=== PATIENT | female | born 1985 | race Caucasian/White ===

== ENCOUNTER 2017-06-05 09:37 | Inpatient (IN) | END 2017-06-09 17:16 | disposition home or self-care (01) | DRG 765 | DX: O42.012 Preterm premature rupture of membranes, onset of labor within 24 hours of rupture, second trimester (principal); O45.92 Premature separation of placenta, unspecified, second trimester; O69.0XX0 Labor and delivery complicated by prolapse of cord, not applicable or unspecified; O09.812 Supervision of pregnancy resulting from assisted reproductive technology, second trimester; Z3A.26 26 weeks gestation of pregnancy; Z37.0 Single live birth ==

== ENCOUNTER 2017-06-18 10:16 | Emergency (ER) | payer OTHER ==
[~2017-06-18] VITALS: Ht 162.6 cm; Wt 79.0 kg
[~2017-06-18 10:16] MED LIST: FERR325T5 PO; PREN-93 PO
[2017-06-18 10:18] VITALS: Ht 162.6 cm; Wt 79.0 kg
--- NOTE | 2017-06-18 10:48 | ERD ---
ER Documentation Chief Complaint Date/Time DATE: 06/18/17 TIME: 10:40 Chief Complaint pt bib family with c/o fever since , C-Sec on 06/06/17 HPI 31-year-old female who presents emergency department for fever since Wednesday. Had a last 06/06/2017 here in the emergency department. Complains of vaginal spotting. Took Tylenol last night. Denies headache, loss of consciousness, dizziness, blurry vision, changes in vision, photophobia, facial pain, ear pain, throat pain, difficulty swallowing, neck pain, shoulder pain, chest pain, cough, hemoptysis, abdominal pain, back pain, loss of appetite, nausea, vomiting, hematochezia, diarrhea, constipation, urinary symptoms, , the possibility of being , bladder and bowel incontinences, extremity weakness, extremity tenderness, numbness or tingling sensation, difficulty walking, recent travel, recent exposure to illness, recent antibiotic use in the last 3 months. Allergy: No known drug allergies. PMH: Denies. A0. LMP: Medications: Tylenol. Surgery: 1. Primary Social History: Not working at this time. Denies smoking, use of alcohol, use of illegal drugs. ROS All systems reviewed and are negative except as per history of present illness. Medications Home Meds Active Scripts Acetaminophen* (Tylophen*) 500 Mg Capsule, 1 CAP PO Q6H Y for PAIN AND OR ELEVATED TEMP, #20 CAP Prov:PASILABAN,KLAR F 06/18/17 Cephalexin* (Keflex*) 500 Mg Capsule, 500 MG PO QID for 5 Days, CAP Prov:PASILABAN,KLAR F 06/18/17 Reported Medications Ferrous Sulfate (Ferrous Sulfate) 325 Mg Tablet.dr, 325 MG PO 06/05/17 Vit No.124/Iron/FA ( Vitamin Tablet) 1 Each Tablet, 1 EACH PO, TAB 06/05/17 Allergies Allergies: Coded Allergies: No Known Allergy (Unverified , 06/05/17) Physical Exam Vitals Vital Signs Date Time Temp Pulse Resp B/P Pulse Ox O2 Delivery O2 Flow Rate FiO2 06/18/17 13:32 98.2 89 18 99/65 98 06/18/17 10:18 100.6 102 16 102/66 98 Physical Exam Const: [] Head: Atraumatic Eyes: Normal Conjunctiva ENT: Normal External Ears, Nose and Mouth. Neck: Full range of motion..~ No meningismus. Resp: Clear to auscultation bilaterally Cardio: Regular rate and rhythm, no murmurs Abd: Soft, non tender, non distended. Normal bowel sounds. site is healed. No dehiscence. No tenderness to palpation. No induration noted. Skin: No petechiae or rashes Back: No midline or flank tenderness Ext: No cyanosis, or edema Neur: Awake and alert. Psych: Normal Mood and Affect Result Diagram: 06/18/17 1125 06/18/17 1125 Results 24 hrs Laboratory Tests Test 06/18/17 11:25 06/18/17 12:02 White Blood Count 13.610^3/ul Red Blood Count 3.5010^6/ul Hemoglobin 10.9g/dl Hematocrit 32.1% Mean Corpuscular Volume 91.7fl Mean Corpuscular Hemoglobin 31.1pg Mean Corpuscular Hemoglobin Concent 34.0g/dl Red Cell Distribution Width 12.7% Platelet Count 49881^3/UL Mean Platelet Volume 10.3fl Neutrophils % 83.2% Lymphocytes % 10.2% Monocytes % 5.5% Eosinophils % 0.4% Basophils % 0.1% Nucleated Red Blood Cells % 0.0/100WBC Neutrophils # (Manual) 11.310^3/ul Lymphocytes # 1.410^3/ul Monocytes # 0.810^3/ul Eosinophils # 0.110^3/ul Basophils # 0.010^3/ul Nucleated Red Blood Cells # 0.010^3/ul Prothrombin Time 13.3Sec Prothrombin Time Ratio 1.0 INR International Normalized Ratio 1.01 Activated Partial Thromboplast Time 34.3Sec Urine Color YELLOW Urine Clarity SLIGHTLY CLOUDY Urine pH 6.0 Urine Specific [place] 1.024 Urine Ketones NEGATIVEmg/dL Urine Nitrite NEGATIVEmg/dL Urine Bilirubin NEGATIVEmg/dL Urine Urobilinogen NEGATIVEmg/dL Urine Leukocyte Esterase 3+Pk/ul Urine Microscopic RBC 14/HPF Urine Microscopic WBC 45/HPF Urine Squamous Epithelial Cells FEW/HPF Urine Mucus FEW/HPF Urine Hemoglobin 2+mg/dL Urine Glucose NEGATIVEmg/dL Urine Total Protein 1+mg/dl Sodium Level 141mmol/L Potassium Level 4.0mmol/L Chloride Level 100mmol/L Carbon Dioxide Level 26mmol/L Anion Gap 19 Blood Urea Nitrogen 12mg/dl Creatinine 0.54mg/dl Glucose Level 97mg/dl Calcium Level 9.1mg/dl Total Bilirubin 0.3mg/dl Direct Bilirubin 0.00mg/dl Indirect Bilirubin 0.3mg/dl Aspartate Amino Transf (AST/SGOT) 46IU/L Alanine Aminotransferase (ALT/SGPT) 45IU/L Alkaline Phosphatase 187IU/L Total Protein 8.3g/dl Albumin 3.8g/dl Globulin 4.50g/dl Albumin/Globulin Ratio 0.84 Amylase Level 59U/L Lipase 83U/L Serum HCG, Qualitative NEGATIVE Lactic Acid Level 0.8mmol/L Current Medications Medications (Trade) Dose Ordered Sig/Alejandro Route PRN Reason Start Time Stop Time Status Last Admin Dose Admin Acetaminophen 650 mg 650 mg ONCE ONCE PO 06/18/17 11:00 06/18/17 11:01 DC 06/18/17 11:35 Sodium Chloride (NS) 1,000 ml @ 1,000 mls/hr Q1H ONCE IV 06/18/17 11:00 06/18/17 11:59 DC 06/18/17 11:35 IV Flush 10 ml 10 ml STK-MED ONCE .ROUTE 06/18/17 12:14 06/18/17 12:15 DC Sodium Chloride (NS) 100 ml @ ud STK-MED ONCE .ROUTE 06/18/17 12:14 06/18/17 12:15 DC Iohexol 150 ml 150 ml STK-MED ONCE .ROUTE 06/18/17 12:14 06/18/17 12:15 DC Sodium Chloride (NS) 1,000 ml @ 1,000 mls/hr Q1H ONCE IV 06/18/17 13:30 06/18/17 14:25 DC 06/18/17 13:31 Procedures/MDM Examination: Please see physical examination. Disease process, medical treatment was explained to the patient and family member. They verbalized understanding and agreed with the diagnostic tests, medical treatment, and follow-up care. CT of the abdomen and pelvis with IV contrast Impression: Complex fluid collections are seen in the bilateral adnexa, large and tubular appearing on the right, as described above, with adjacent inflammatory stranding. Findings may be compatible with hydrosalpinx, through pyosalpinx/tubo-ovarian abscess is not excluded. Uterus is prominent, compatible with recent state. No evidence of hematoma or active contrast extravasation is identified. There is no bowel obstruction or perforation. Blood works: Mild leukocytosis. POC urine : Negative. Urinalysis: UTI. Culture urine: Awaiting for results. Treatment: IV insertion. Normal saline 1 L IV bolus 2. Re-evaluation: Denies headache, dizziness, blurry vision, neck pain, shoulder pain, chest pain, back pain, abdominal pain, nausea, vomiting. No episode of emesis in the emergency department. Alert and oriented 4. Speaks full and clear sentences. Respirations even and unlabored. Lung sounds clear to auscultation. Active bowel sounds. There is no right upper/right lower/ epigastric/left upper/left lower abdominal tenderness and light and deep palpation. Negative on Rovsings sign. Negative Wiley sign. Able to jump 5 times without developing right-sided abdominal pain. No peritoneal signs. Ambulatory with steady gait. No neurovascular deficits. No neurological deficits. Consultation: None. Differential diagnosis: Sepsis versus abscess versus pyelonephritis versus nephrolithiasis versus urinary tract infection Medical decision makin-year-old female who presents emergency department for fever since Wednesday. Had a last 06/06/2017 here in the emergency department. Complains of vaginal spotting. Took Tylenol last night. Patient's complaint, patient's history about her complaint, my physical findings, diagnostic test results, my reevaluation are consistent with final diagnosis of UTI, mild leukocytosis. Medications prescribed are the following: Keflex. Tylenol. Patient and family member are made aware of the side effects and adverse reactions of the medications prescribed. Instructed on when to seek emergent and medical attention in case allergic/anaphylactic reactions or severe side effects and or adverse reactions to medications. Patient and family member verbalized understanding. Patient instructed Instructed to follow-up with his PCP in 24-48 hours. Follow-up with surgeon the next 24-48 hours. Instructed to Call 911 for chest pain, shortness of breath. Advised to come back here in ED as soon as possible for severity of symptoms which includes but not limited to: any new symptoms; shortness of breath/difficulty of breathing; cardiovascular changes; severe gastrointestinal symptoms; signs and symptoms of bleeding and or infection; signs of compartment syndrome/neurovascular changes; neurological changes/deficits. Patient and family member verbalized understanding. Upon discharge, patient is alert and oriented x 4, speaks full and clear sentences, denies pain, has no neurological deficits, has no neurovascular deficits, difficulty of breathing. Breathing even and unlabored. Lung sounds are clear to auscultation. Not in distress. Appears comfortable. Ambulatory with steady gait. Appears satisfied with care provided here in ED. Departure Diagnosis: Primary Impression: Fever Additional Impression: UTI (urinary tract infection) Condition: Stable Additional Instructions: Instructed to follow-up with his PCP in 24-48 hours. Follow-up with surgeon the next 24-48 hours. Instructed to Call 911 for chest pain, shortness of breath. Advised to come back here in ED as soon as possible for severity of symptoms which includes but not limited to: any new symptoms; shortness of breath/difficulty of breathing; cardiovascular changes; severe gastrointestinal symptoms; signs and symptoms of bleeding and or infection; signs of compartment syndrome/neurovascular changes; neurological changes/deficits. Patient and family member verbalized understanding. VEE GUSTAFSON Jun 18, 2017 10:47
[2017-06-18] MEDS ORDERED: ACETAMINOPHEN 325 MG TAB PO ONE (11:00)
[2017-06-18] MEDS ORDERED: SOD CHLORIDE 0.9% 1,000 ML IV ONE ×2 (11:00→13:30)
[2017-06-18 11:41] LABS: BASOPHILS % 0.1 % (0.0-2.0); EOSINOPHILS # 0.1 10^3/ul (0.0-0.5); EOSINOPHILS % 0.4 % (0.0-7.0); HEMATOCRIT 32.1 % (37.0-47.0); HEMOGLOBIN 10.9 g/dl (12.0-16.0); LYMPHOCYTES # 1.4 10^3/ul (0.8-2.9); LYMPHOCYTES % 10.2 % (15.0-51.0); MEAN CORPUSCULAR HEMOGLOBIN 31.1 pg (29.0-33.0); MEAN CORPUSCULAR VOLUME 91.7 fl (82.0-101.0); MEAN PLATELET VOLUME 10.3 fl (7.4-10.4); MONOCYTE # 0.8 10^3/ul (0.3-0.9); MONOCYTES % 5.5 % (0.0-11.0); NEUTROPHILS % 83.2 % (39.0-77.0); PLATELET COUNT 253 10^3/UL (140-415); RED CELL DISTRIBUTION WIDTH 12.7 % (11.5-14.5); WHITE BLOOD COUNT 13.6 10^3/ul (4.8-10.8)
[2017-06-18 11:55] LABS: ALBUMIN 3.8 g/dl (3.3-4.9); ALBUMIN/GLOBULIN RATIO 0.84; BILIRUBIN,INDIRECT 0.3 mg/dl (0-1.1); BILIRUBIN,TOTAL 0.3 mg/dl (0.2-1.3); CALCIUM 9.1 mg/dl (8.4-10.2); CREATININE 0.54 mg/dl (0.44-1.00); TOTAL PROTEIN 8.3 g/dl (6.1-8.1)
[2017-06-18 11:56] LABS: AMYLASE 59 U/L (11-123); INR 1.01; PROTIME 13.3 Sec (12.2-14.2)
[2017-06-18 11:57] LABS: PARTIAL THROMBOPLASTIN TIME 34.3 Sec (25.0-35.0)
[2017-06-18] MEDS ORDERED: IOHEXOL 300MG/ML 150 ML BTL ONE (12:14)
[2017-06-18] MEDS ORDERED: SOD CHLORIDE 0.9% 100 ML ONE (12:14)
[2017-06-18 12:15] LABS: ADD UMIC YES; UR ASCORBIC ACID NEGATIVE (NEGATIVE); UR BILIRUBIN (Dip) NEGATIVE (NEGATIVE); UR BLOOD (Dip) 2+ mg/dL (NEGATIVE); UR CLARITY SLIGHTLY CLOUDY (CLEAR); UR COLOR YELLOW (YELLOW); UR GLUCOSE (Dip) NEGATIVE (NEGATIVE); UR KETONES (Dip) NEGATIVE (NEGATIVE); UR LEUKOCYTE ESTERASE (Dip) 3+ Leu/ul (NEGATIVE); UR MUCUS FEW /HPF (NONE SEEN); UR NITRITE (Dip) NEGATIVE (NEGATIVE); UR RBC 14 /HPF (0-5); UR SPECIFIC GRAVITY (Dip) 1.024 (1.003-1.030); UR SQUAMOUS EPITHELIAL CELL FEW /HPF (FEW); UR TOTAL PROTEIN (Dip) 1+ mg/dl (NEGATIVE); UR UROBILINOGEN (Dip) NEGATIVE (NEGATIVE)
--- NOTE | 2017-06-18 12:44 | RADRPT ---
PROCEDURE: CT Abdomen and Pelvis with contrast. CLINICAL INDICATION: Pain at section site TECHNIQUE: CT of the abdomen and pelvis was performed on a multi-detector scanner following the un complicated IV administration of 100 cc of Omnipaque 300. Coronal and sagittal images were reformat bruce from the axial data set. One or more of the following dose reduction techniques were used: auto mated exposure control, adjustment of the mA and/or kV according to patient size, use of iterative reconstruction technique. CTDI = 15.68 mGy. DLP = 969.08 mGy-cm. COMPARISON: Ultrasound, 06/05/2017 FINDINGS: CT abdomen: The lung bases are clear. The heart size is normal, without pericardial effusion. Liver, gallbladd er, biliary tree, pancreas, spleen, adrenal glands and kidneys are unremarkable. There is no urolit hiasis or obstructive uropathy. The stomach is grossly unremarkable. There is no abdominal aortic aneurysm or dissection. There is no retroperitoneal lymphadenopathy. The liang hepatis region is clear. CT pelvis: No bowel obstruction or free intraperitoneal air is identified. There is no diverticulosis, diverti culitis, colitis or appendicitis. Urinary bladder is grossly unremarkable. Uterus is prominent, co mpatible with recent state. Thick-walled, complex tubular appearing structure is identif ied in the right adnexa, measuring approximately 6.2 x 4.3 x 4.5 cm (3-141), with mild adjacent inflammatory stranding. Smaller 3.8 x 2.8 x 1.9 cm questionably locu lated collection is seen in the left adnexa as well (3-140). No evidence of abnormality is seen at the incision site within anterior pelvic subcutaneous fat. The surrounding osseous structures are unremarkable. No osteolytic or osteoblastic lesion is detect ed. IMPRESSION: 1. Complex fluid collections are seen in the bilateral adnexa, larger and tubular-appearing on the right, as described above, with adjacent inflammatory stranding. Findings may be compatible with hy drosalpinx, though pyosalpinx/tubo-ovarian abscess is not excluded. 2. Uterus is prominent, compatible with recent state. 3. No evidence of hematoma or active contrast extravasation is identified. 4. There is no bowel obstruction or perforation. RPTAT: AA .Bethel Woody MD, MD Date Time Electronically viewed and signed by .Bethel Woody MD, MD on 06/18/2017 12:44 .R/
[2017-06-18] MEDS ORDERED: ACET500C5 PO (13:15)
[2017-06-18] MEDS ORDERED: CEPH-443 PO (13:15)
[2017-06-18 13:32] VITALS: BP 99/65; PULSE 89; RESP 18; TEMP 98.2
== END 2017-06-18 14:25 | disposition home or self-care (01) ==
LOC: FTE 10:16
DX: O86.4 Pyrexia of unknown origin following delivery (principal); O86.20 Urinary tract infection following delivery, unspecified; B96.89 Other specified bacterial agents as the cause of diseases classified elsewhere
CPT/HCPCS: 36415; 74177; 80053; 81001; 82150; 83605; 83690; 84703; 85025; 85610; 85730; 87040; 87086; J7030; Q9967; Z7502; Z7610

== ENCOUNTER 2017-06-21 11:20 | Inpatient (IN) | payer OTHER ==
[~2017-06-21] VITALS: Ht 162.6 cm; Wt 78.6 kg
[~2017-06-21 11:20] MED LIST changes: +ACET500C5 PO; +CEPH-443 PO
[2017-06-21] MEDS ORDERED: PIPER-TAZO 3.375 GM IV (PMX) 100 ML IVPB STA (13:50)
[2017-06-21] MEDS ORDERED: SOD CHLORIDE 0.9% IV ONE (14:00)
--- NOTE | 2017-06-21 14:11 | ERA ---
ER Documentation Chief Complaint Date/Time DATE: 06/21/17 TIME: 14:09 Chief Complaint FEVER HPI 31-year-old female presenting with a chief complaints of fever. Patient has pain at incision site of performed on June 06. Patient denies any medical conditions. Patient had ovaries patient's was from IVF. Patient had tubal ligation after . CT was taken 4 days ago. Keflex 500 mg p.o. 4 times daily was prescribed and has been taken as directed. Acetaminophen for fever without relief. Patient has no other complaints and describes no other associated manifestations. Nursing notes have been reviewed and are consistent with history given. ROS All systems reviewed and are negative except as per history of present illness. Medications Home Meds Active Scripts Acetaminophen* (Tylophen*) 500 Mg Capsule, 1 CAP PO Q6H Y for PAIN AND OR ELEVATED TEMP, #20 CAP Prov:BRAYANILABANKYARAAR F 06/18/17 Cephalexin* (Keflex*) 500 Mg Capsule, 500 MG PO QID for 5 Days, CAP Prov:BRAYANILAKYARA LAUGHLINAR F 06/18/17 Reported Medications Ferrous Sulfate (Ferrous Sulfate) 325 Mg Tablet.dr, 325 MG PO 06/05/17 Vit No.124/Iron/FA ( Vitamin Tablet) 1 Each Tablet, 1 EACH PO, TAB 06/05/17 Allergies Allergies: Coded Allergies: No Known Allergy (Unverified , 06/05/17) PMhx/Soc History of Surgery: Yes ( 2weeks ago) Hx Alcohol Use: No Hx Substance Use: No Hx Tobacco Use: No Physical Exam Vitals Vital Signs Date Time Temp Pulse Resp B/P Pulse Ox O2 Delivery O2 Flow Rate FiO2 06/21/17 17:00 100.8 107 20 94/74 98 Room Air 06/21/17 16:03 101.5 105 20 114/78 99 Room Air 06/21/17 15:30 98.3 102 20 94/68 100 Room Air 06/21/17 14:27 Nasal Cannula 2 06/21/17 11:25 102.4 120 20 105/68 98 Physical Exam Const: Healthy-appearing. Well-nourished. Well-developed. No acute distress. Skin: Well-appearing incision site of . Appropriately healing. No discharge or foul smell noted. Mild induration and pain on the right aspect of incision. Induration less than 1 cm. No petechiae or rashes. No ulcer, jaundice. Good turgor. Ext: No cyanosis or edema noted. Head: Normocephalic. As noted in skin exam. Eyes: Non-injected; No scleral erythema, or discharge. EOMI and ALEX bilaterally. Ears: Normal External Ears, EACs clear, TM normal bilaterally without erythema. Nose: Normal nose without discharge, septal deviation, or sinus tenderness. Oral: No oral edema visualized. Mucous membranes moist and pink. Neck: No cervical lymphadenopathy, or masses. Trachea midline. Supple ~ No meningismus. Pulm: Good air movement in upper and lower respiratory tracts. No dyspnea, stridor, tripoding or drooling. Clear to auscultation bilaterally. Cardio: Regular rate and rhythm. No JVD grossly observed. Radial and posterior tibial pulses 2+ bilaterally. No cyanosis. Capillary refill less than 2 seconds. Abd: Soft, non tender, non distended. No guarding. Normal bowel sounds. MS: Normal motor strength, normal tone with gross examination. Back: No midline or flank tenderness. Neur: Neurovascularly intact bilaterally. Awake, alert and oriented x3. Result Diagram: 06/21/17 1410 06/21/17 1410 Results 24 hrs Laboratory Tests Test 06/21/17 14:10 06/21/17 15:50 06/21/17 16:28 White Blood Count 10.910^3/ul Red Blood Count 3.4810^6/ul Hemoglobin 10.7g/dl Hematocrit 31.6% Mean Corpuscular Volume 90.8fl Mean Corpuscular Hemoglobin 30.7pg Mean Corpuscular Hemoglobin Concent 33.9g/dl Red Cell Distribution Width 13.2% Platelet Count 86929^3/UL Mean Platelet Volume 10.4fl Neutrophils % 84.0% Lymphocytes % 8.8% Monocytes % 6.3% Eosinophils % 0.1% Basophils % 0.3% Nucleated Red Blood Cells % 0.0/100WBC Neutrophils # (Manual) 9.110^3/ul Lymphocytes # 1.010^3/ul Monocytes # 0.710^3/ul Eosinophils # 0.010^3/ul Basophils # 0.010^3/ul Nucleated Red Blood Cells # 0.010^3/ul Prothrombin Time 13.2Sec Prothrombin Time Ratio 1.0 INR International Normalized Ratio 1.00 Activated Partial Thromboplast Time 35.4Sec Sodium Level 138mmol/L Potassium Level 3.7mmol/L Chloride Level 98mmol/L Carbon Dioxide Level 24mmol/L Anion Gap 20 Blood Urea Nitrogen 9mg/dl Creatinine 0.58mg/dl Glucose Level 129mg/dl Lactic Acid Level 1.3mmol/L 1.4mmol/L Calcium Level 9.2mg/dl Total Bilirubin 0.2mg/dl Direct Bilirubin 0.00mg/dl Indirect Bilirubin 0.2mg/dl Aspartate Amino Transf (AST/SGOT) 42IU/L Alanine Aminotransferase (ALT/SGPT) 62IU/L Alkaline Phosphatase 298IU/L Troponin I < 0.012ng/ml Total Protein 8.2g/dl Albumin 3.7g/dl Globulin 4.50g/dl Albumin/Globulin Ratio 0.82 Urine Color COLORLESS Urine Clarity CLEAR Urine pH 6.0 Urine Specific [place] 1.003 Urine Ketones NEGATIVEmg/dL Urine Nitrite NEGATIVEmg/dL Urine Bilirubin NEGATIVEmg/dL Urine Urobilinogen NEGATIVEmg/dL Urine Leukocyte Esterase 1+Pk/ul Urine Microscopic RBC 1/HPF Urine Microscopic WBC 0/HPF Urine Bacteria FEW/HPF Urine Hemoglobin 2+mg/dL Urine Glucose NEGATIVEmg/dL Urine Total Protein NEGATIVEmg/dl Current Medications Medications (Trade) Dose Ordered Sig/Alejandro Route PRN Reason Start Time Stop Time Status Last Admin Dose Admin Piperacillin Sod/ Tazobactam Sod 100 ml @ 200 mls/hr ONCE STAT IVPB 06/21/17 13:50 06/21/17 14:19 DC 06/21/17 14:14 Sodium Chloride (NS) 2,360 ml @ 2,360 mls/hr BOLUS X1 ONCE IV 06/21/17 14:00 06/21/17 14:59 DC 06/21/17 14:14 Acetaminophen (Tylenol Tab) 650 mg ONCE ONCE PO 06/21/17 16:30 06/21/17 16:31 DC 06/21/17 16:30 SHANNA LAWRENCE PA-C Jun 21, 2017 14:11
[2017-06-21 14:25] LABS: BASOPHILS % 0.3 % (0.0-2.0); EOSINOPHILS % 0.1 % (0.0-7.0); HEMATOCRIT 31.6 % (37.0-47.0); HEMOGLOBIN 10.7 g/dl (12.0-16.0); LYMPHOCYTES % 8.8 % (15.0-51.0); MEAN CORPUSCULAR HEMOGLOBIN 30.7 pg (29.0-33.0); MEAN CORPUSCULAR HGB CONC 33.9 g/dl (32.0-37.0); MEAN CORPUSCULAR VOLUME 90.8 fl (82.0-101.0); MEAN PLATELET VOLUME 10.4 fl (7.4-10.4); MONOCYTE # 0.7 10^3/ul (0.3-0.9); MONOCYTES % 6.3 % (0.0-11.0); PLATELET COUNT 291 10^3/UL (140-415); RED BLOOD COUNT 3.48 10^6/ul (4.20-5.40); RED CELL DISTRIBUTION WIDTH 13.2 % (11.5-14.5); WHITE BLOOD COUNT 10.9 10^3/ul (4.8-10.8)
--- NOTE | 2017-06-21 14:28 | RADRPT ---
PROCEDURE: XR Chest. CLINICAL INDICATION: chest pain TECHNIQUE: Single frontal view of the chest was obtained COMPARISON: None FINDINGS: The heart and mediastinum are within normal limits. The lungs are clear. There is no pleural effusion or pneumothorax. RPTAT: AA IMPRESSION: No acute disease. .Raji Fowler MD, Date Time Electronically viewed and signed by .Raji Fowler MD, on 06/21/2017 14:28 .S/
[2017-06-21 14:41] LABS: PROTIME 13.2 Sec (12.2-14.2)
[2017-06-21 14:42] LABS: PARTIAL THROMBOPLASTIN TIME 35.4 Sec (25.0-35.0)
[2017-06-21 14:45] LABS: ALANINE AMINOTRANSFERASE 62 IU/L (13-69); ALBUMIN 3.7 g/dl (3.3-4.9); ALBUMIN/GLOBULIN RATIO 0.82; ALKALINE PHOSPHATASE 298 IU/L (42-121); ANION GAP 20 (8-16); ASPARTATE AMINO TRANSFERASE 42 IU/L (15-46); BILIRUBIN,INDIRECT 0.2 mg/dl (0-1.1); BILIRUBIN,TOTAL 0.2 mg/dl (0.2-1.3); BLOOD UREA NITROGEN 9 mg/dl (7-20); CALCIUM 9.2 mg/dl (8.4-10.2); CARBON DIOXIDE 24 mmol/L (21-31); CHLORIDE 98 mmol/L (97-110); CREATININE 0.58 mg/dl (0.44-1.00); GLUCOSE 129 mg/dl (70-220); POTASSIUM 3.7 mmol/L (3.5-5.1); SODIUM 138 mmol/L (135-144); TOTAL PROTEIN 8.2 g/dl (6.1-8.1)
[2017-06-21 14:59] LABS: TROPONIN-I < 0.012 ng/ml (0.00-0.12)
--- NOTE | 2017-06-21 15:04 | RADRPT ---
PROCEDURE: US Pelvis CLINICAL INDICATION: Pain TECHNIQUE: Sonographic evaluation of the pelvis was performed utilizing both transabdominal and tr ansvaginal technique. Curved array transabdominal transducer technique as well as a high frequency endovaginal probe was utilized. Images were reviewed on the high-resolution PACS workstation. COMPARISON: CT, 06/18/2017 FINDINGS: The uterus is prominent, measuring 11.6 x 7.0 x 7.1 cm in dimension. The uterus is anteverted in no rmal position. The endometrium is not well delineated, though grossly appears thickened, measuring approximately 2.1 cm. Increased endometrial vascularity is also seen. Complex cystic, possibly tubular structure is again seen in the right adnexa, measuring 7.6 x 5.3 x 4.8 cm. The right ovary is not well visualized. There is no evidence of right adnexal torsion. The left ovary is not visualized. No pelvic free fluid is identified. IMPRESSION: 1. The endometrium grossly appears thickened and demonstrates increased vascularity - endometritis and/or retained products of conception are not excluded. 2. Complex cystic, possibly tubular structure is again noted in the right adnexa, similar to the pr ior CT - considerations include hemorrhagic ovarian cyst(s), hematosalpinx, and pyosalpinx. 3. The left ovary is not visualized. No left adnexal abnormality is seen. 4. No pelvic free fluid is identified. RPTAT: HH .Bethel Woody MD, Date Time Electronically viewed and signed by .Bethel Woody MD, MD on 06/21/2017 15:04 .R/
[2017-06-21] MEDS ORDERED: ACETAMINOPHEN 325 MG TAB PO ONE (16:30)
[2017-06-21 16:59] LABS: ADD UMIC YES; UR ASCORBIC ACID NEGATIVE (NEGATIVE); UR BACTERIA FEW /HPF (NONE SEEN); UR BILIRUBIN (Dip) NEGATIVE (NEGATIVE); UR BLOOD (Dip) 2+ mg/dL (NEGATIVE); UR CLARITY CLEAR (CLEAR); UR COLOR COLORLESS (YELLOW); UR GLUCOSE (Dip) NEGATIVE (NEGATIVE); UR KETONES (Dip) NEGATIVE (NEGATIVE); UR LEUKOCYTE ESTERASE (Dip) 1+ Leu/ul (NEGATIVE); UR NITRITE (Dip) NEGATIVE (NEGATIVE); UR RBC 1 /HPF (0-5); UR SPECIFIC GRAVITY (Dip) 1.003 (1.003-1.030); UR TOTAL PROTEIN (Dip) NEGATIVE (NEGATIVE); UR UROBILINOGEN (Dip) NEGATIVE (NEGATIVE)
[2017-06-21] MEDS ORDERED: SOD CHLORIDE 0.9% 1,000 ML IV SCH (18:29)
[2017-06-21] MEDS ORDERED: ACETAMINOPHEN 325 MG TAB PO PRN (18:30)
[2017-06-21] MEDS ORDERED: ONDANSETRON 4 MG INJ IV PRN (18:30)
--- NOTE | 2017-06-21 18:33 | ERA ---
ER Documentation Chief Complaint Date/Time DATE: 06/21/17 TIME: 18:30 Chief Complaint FEVER HPI This a 31-year-old female who had a performed here. This was done on June 07, 2017. The patient's been doing well until she was seen here 4 days ago where she had a fever and some vaginal spotting. Patient was diagnosed with urinary tract infection and sent home. The patient had a CT scan but I do not know if it was reviewed because it shows a probable tubo-ovarian abscess with some fainting of this stranding of the fat. This is possibly a bilateral TOA as well. The patient was sent home on Keflex since continued to have fevers of 103 for the past 4 days. She does have some mild diffuse pelvic pain but is not significant. No nausea vomiting fever headache dysuria. She says she is having some slight vaginal spotting but does not smell. ROS All systems reviewed and are negative except as per history of present illness. Medications Home Meds Active Scripts Acetaminophen* (Tylophen*) 500 Mg Capsule, 1 CAP PO Q6H Y for PAIN AND OR ELEVATED TEMP, #20 CAP Prov:KYARA GUSTAFSONAR F 06/18/17 Cephalexin* (Keflex*) 500 Mg Capsule, 500 MG PO QID for 5 Days, CAP Prov:BRAYANILAKYARA LAUGHLINAR F 06/18/17 Reported Medications Ferrous Sulfate (Ferrous Sulfate) 325 Mg Tablet., 325 MG PO 06/05/17 Vit No.124/Iron/FA ( Vitamin Tablet) 1 Each Tablet, 1 EACH PO, TAB 06/05/17 Allergies Allergies: Coded Allergies: No Known Allergy (Unverified , 06/05/17) PMhx/Soc History of Surgery: Yes ( 2weeks ago) Hx Alcohol Use: No Hx Substance Use: No Hx Tobacco Use: No FmHx Family History: No coronary disease Physical Exam Vitals Vital Signs Date Time Temp Pulse Resp B/P Pulse Ox O2 Delivery O2 Flow Rate FiO2 06/21/17 18:00 99.8 96 20 101/68 98 Room Air 06/21/17 17:00 100.8 107 20 94/74 98 Room Air 06/21/17 16:03 101.5 105 20 114/78 99 Room Air 06/21/17 15:30 98.3 102 20 94/68 100 Room Air 06/21/17 14:27 Nasal Cannula 2 06/21/17 11:25 102.4 120 20 105/68 98 Physical Exam Const: [] Head: Atraumatic Eyes: Normal Conjunctiva ENT: Normal External Ears, Nose and Mouth. Neck: Full range of motion..~ No meningismus. Resp: Clear to auscultation bilaterally Cardio: Regular rate and rhythm, no murmurs Abd: Soft, non tender, non distended. Normal bowel sounds Skin: No petechiae or rashes Back: No midline or flank tenderness Ext: No cyanosis, or edema Neur: Awake and alert Psych: Normal Mood and Affect Const: Well-developed, well-nourished Head: Atraumatic, normocephalic Eyes: Normal Conjunctiva, PERRLA, EOMI, normal sclera, no nystagmus ENT: Normal External Ears, Nose and Mouth, moist mucus membranes. Neck: Full range of motion. No meningismus, no lymphadenopathy. Resp: Clear to auscultation bilaterally, no wheezing, rhonchi, rales Cardio: Regular rate and rhythm, no murmurs, S1 S2 present Abd: Soft, mild diffuse pelvic tenderness, non distended. Normal bowel sounds, no guarding or rebound, no pulsitile abdominal masses or bruits Skin: No petechiae or rashes, no ecchymosis , no maculopapular rash Back: No midline or flank tenderness Ext: No cyanosis, or edema, FROM x 4, normal inspection, neurovascularly intact x 4 Neur: Awake and alert, STR 5/5 x 4, sensation intact x 4, no focal findings, cerebellum intact Psych: Normal Mood and Affect Result Diagram: 06/21/17 1410 06/21/17 1410 Results 24 hrs Laboratory Tests Test 06/21/17 14:10 06/21/17 15:50 06/21/17 16:28 White Blood Count 10.910^3/ul Red Blood Count 3.4810^6/ul Hemoglobin 10.7g/dl Hematocrit 31.6% Mean Corpuscular Volume 90.8fl Mean Corpuscular Hemoglobin 30.7pg Mean Corpuscular Hemoglobin Concent 33.9g/dl Red Cell Distribution Width 13.2% Platelet Count 92270^3/UL Mean Platelet Volume 10.4fl Neutrophils % 84.0% Lymphocytes % 8.8% Monocytes % 6.3% Eosinophils % 0.1% Basophils % 0.3% Nucleated Red Blood Cells % 0.0/100WBC Neutrophils # (Manual) 9.110^3/ul Lymphocytes # 1.010^3/ul Monocytes # 0.710^3/ul Eosinophils # 0.010^3/ul Basophils # 0.010^3/ul Nucleated Red Blood Cells # 0.010^3/ul Prothrombin Time 13.2Sec Prothrombin Time Ratio 1.0 INR International Normalized Ratio 1.00 Activated Partial Thromboplast Time 35.4Sec Sodium Level 138mmol/L Potassium Level 3.7mmol/L Chloride Level 98mmol/L Carbon Dioxide Level 24mmol/L Anion Gap 20 Blood Urea Nitrogen 9mg/dl Creatinine 0.58mg/dl Glucose Level 129mg/dl Lactic Acid Level 1.3mmol/L 1.4mmol/L Calcium Level 9.2mg/dl Total Bilirubin 0.2mg/dl Direct Bilirubin 0.00mg/dl Indirect Bilirubin 0.2mg/dl Aspartate Amino Transf (AST/SGOT) 42IU/L Alanine Aminotransferase (ALT/SGPT) 62IU/L Alkaline Phosphatase 298IU/L Troponin I < 0.012ng/ml Total Protein 8.2g/dl Albumin 3.7g/dl Globulin 4.50g/dl Albumin/Globulin Ratio 0.82 Urine Color COLORLESS Urine Clarity CLEAR Urine pH 6.0 Urine Specific [place] 1.003 Urine Ketones NEGATIVEmg/dL Urine Nitrite NEGATIVEmg/dL Urine Bilirubin NEGATIVEmg/dL Urine Urobilinogen NEGATIVEmg/dL Urine Leukocyte Esterase 1+Pk/ul Urine Microscopic RBC 1/HPF Urine Microscopic WBC 0/HPF Urine Bacteria FEW/HPF Urine Hemoglobin 2+mg/dL Urine Glucose NEGATIVEmg/dL Urine Total Protein NEGATIVEmg/dl Current Medications Medications (Trade) Dose Ordered Sig/Alejandro Route PRN Reason Start Time Stop Time Status Last Admin Dose Admin Piperacillin Sod/ Tazobactam Sod 100 ml @ 200 mls/hr ONCE STAT IVPB 06/21/17 13:50 06/21/17 14:19 DC 06/21/17 14:14 Sodium Chloride (NS) 2,360 ml @ 2,360 mls/hr BOLUS X1 ONCE IV 06/21/17 14:00 06/21/17 14:59 DC 06/21/17 14:14 Acetaminophen (Tylenol Tab) 650 mg ONCE ONCE PO 06/21/17 16:30 06/21/17 16:31 DC 06/21/17 16:30 Procedures/[facility] PROCEDURE: US Pelvis CLINICAL INDICATION: Pain TECHNIQUE: Sonographic evaluation of the pelvis was performed utilizing both transabdominal and transvaginal technique. Curved array transabdominal transducer technique as well as a high frequency endovaginal probe was utilized. Images were reviewed on the high-resolution PACS workstation. COMPARISON: CT, 06/18/2017 FINDINGS: The uterus is prominent, measuring 11.6 x 7.0 x 7.1 cm in dimension. The uterus is anteverted in normal position. The endometrium is not well delineated, though grossly appears thickened, measuring approximately 2.1 cm. Increased endometrial vascularity is also seen. Complex cystic, possibly tubular structure is again seen in the right adnexa, measuring 7.6 x 5.3 x 4.8 cm. The right ovary is not well visualized. There is no evidence of right adnexal torsion. The left ovary is not visualized. No pelvic free fluid is identified. IMPRESSION: 1. The endometrium grossly appears thickened and demonstrates increased vascularity - endometritis and/or retained products of conception are not excluded. 2. Complex cystic, possibly tubular structure is again noted in the right adnexa, similar to the prior CT - considerations include hemorrhagic ovarian cyst(s), hematosalpinx, and pyosalpinx. 3. The left ovary is not visualized. No left adnexal abnormality is seen. 4. No pelvic free fluid is identified. RPTAT: HH .Bethel Woody MD, Date Time Electronically viewed and signed by .Bethel Woody MD, on 06/21/2017 15: 04 .R/ CC: SHANNA LAWRENCE PA-C PROCEDURE: XR Chest. CLINICAL INDICATION: chest pain TECHNIQUE: Single frontal view of the chest was obtained COMPARISON: None FINDINGS: The heart and mediastinum are within normal limits. The lungs are clear. There is no pleural effusion or pneumothorax. RPTAT: AA IMPRESSION: No acute disease. .Raji Fowler MD, MD Date Time Electronically viewed and signed by .Raji Fowler MD, on 06/21/2017 14: 28 .S/ CC: SHANNA LAWRENCE PA-C Told the patient's steam cleaning machine operator to perform the procedure and will admit to him for TOA. Will give Zosyn for antibiotic coverage. Departure Diagnosis: Primary Impression: Tubo-ovarian abscess Additional Impression: Fever Qualified Code: R50.9 - Fever, unspecified fever cause Condition: Stable ANNA SAMPSON DO Jun 21, 2017 18:33
[2017-06-21] MEDS ORDERED: PIPER-TAZO 3.375 GM IV (PMX) 100 ML IVPB ONE (19:00)
[2017-06-21] MEDS ORDERED: DOCU-159 PO (20:01)
[2017-06-21 21:37] VITALS: TEMP 99.2
[2017-06-21 22:00] VITALS: BP 120/61; RESP 16
[2017-06-21 22:10] VITALS: BP 120/61; PULSE 101; RESP 18
[2017-06-21 22:34] VITALS: Ht 162.6 cm; Wt 78.6 kg
--- NOTE | 2017-06-21 23:41 | QN ---
Documentation Comment h and p dictated plan continue iv antibiotics, medicine consult, discuss with radiologist for possible ct guided drainage if necessary at this time SHANNA RICO MD Jun 21, 2017 23:41
[2017-06-22] MEDS: LACTATED RINGER'S 1,000 ML IV SCH ×3 (00:03→17:30)
[2017-06-22] MEDS: PIPER-TAZO 3.375 GM IV (PMX) 100 ML IVPB SCH ×5 (00:03→23:27)
[2017-06-22 01:43] VITALS: BP 120/66; RESP 16
--- NOTE | 2017-06-22 03:51 | HP ---
DATE OF ADMISSION: 06/21/2017 HISTORY OF PRESENT ILLNESS: Ms. Tommy Lakhani is a 31-year-old, 1, para 1, status post primary on June 06, 2017, by Dr. Srinivasan Dean, who is the primary surgeon. Patient presented to the ER today complaining of fever since last Wednesday, approximately 4-5 days ago. An ultrasound was performed with an impression of a complex cystic, possibly tubular structure, in the right adnexa, measuring approximately 7.6 x 5.3 x 4.8 cm. Considerations include hemorrhagic ovarian cyst, hematosalpinx and hydrosalpinx. Patient, in the ER, had a T-max of 100.2. After the above evaluation, it was felt that admission is necessary for further workup. She also received IV antibiotics. Her vital signs are currently 98.3, pulse 101, respiration 18, blood pressure 120/61, pulse oximetry 98 in room air. PAST MEDICAL HISTORY: None. MEDICATIONS: 1. Iron. 2. vitamins. PAST SURGICAL HISTORY: Times 1 previous , June 06, 2017. SOCIAL HISTORY: Denies any smoking, drugs, or alcohol. FAMILY HISTORY: None. REVIEW OF SYSTEMS: All within normal except History of Present Illness. PHYSICAL EXAMINATION: HEENT: Within normal. LUNGS: CTA bilateral. CVS: S1, S2. Regular rhythm. BREAST EXAM: Positive bilateral breast engorgement. Please note, jelly filter tender in the room. ABDOMEN: Dry, and intact. Negative distention. Nontender. No CVA tenderness. EXTREMITIES: Negative edema. No calf tenderness. VAGINAL: Exam deferred. DATA: Blood culture performed June 18, 2017. Blood culture preliminary no growth after 3 days. Her current white blood cell is 10.9, hemoglobin 10.7, hematocrit 31.6, platelets 291. ASSESSMENT: A 31-year-old, 1, para 1, status post delivery on 06/06/2017, re-admitted secondary to patient febrile and a complex cystic, tubular structure on the right adnexa measuring approximately 7.6 cm. PLAN: The patient is currently afebrile. Plan is continue IV antibiotics. Medicine consult. Discuss with the interventional radiologist tomorrow for possible CT-guided drainage if necessary. Dictated By: Yunior Israel MD /quentin/justice /Document#: [id number]
[2017-06-22 07:00] VITALS: BP 111/62; RESP 18
[2017-06-22] MEDS ORDERED: VANCOMYCIN IV PER PHARMACY XX SCH (08:00)
--- NOTE | 2017-06-22 09:07 | CONS ---
Date/Time of Note Date/Time of Note DATE: 06/22/17 TIME: 09:00 Assessment/Plan Assessment/Plan Additional Assessment/Plan 1. Sepsis, as evidenced by fever and tachycardia, possibly secondary to endometritis versus infected adnexal cyst -Continue IV antibiotic -Follow-up culture results -Follow-up TRANSMISSION AND PROTECTION ENGINEER recommendation 2. Status post recent -Site seems to be healing well. No acute issue Consultation Date/Type/Reason Admit Date/Time Jun 21, 2017 at 18:30 Hx of Present Illness This is a 31-year-old female who is status post 2 weeks ago who presented to the ER complaining of fever. For the past 5 days, she has been experiencing intermittent fever which she documented at home to be as high as 102.5. She denied any abdominal pain, cough, urinary symptom, shortness of breath, chest pain or any other symptoms for that matter except for fever. She denied any sinus infection or pain around the site. When she presented to the ER, she was febrile with a temperature of 102.4, heart rate 120. Lab shows WBC 11, alk phos 298. Urinalysis negative for UTI and a chest x-ray without infiltrate. Pelvic ultrasound shows the endometrium grossly appears thickened and demonstrates increased vascularity - endometritis and/or retained products of conception are not excluded. Complex cystic, possibly tubular structure is again noted in the right adnexa, similar to the prior CT - considerations include hemorrhagic ovarian cyst(s), hematosalpinx, and pyosalpinx. . Social History Smoking Status: Never smoker Exam/Review of Systems Vital Signs Vitals Vital Signs Date Time Temp Pulse Resp B/P Pulse Ox O2 Delivery O2 Flow Rate FiO2 06/22/17 07:00 98.8 92 18 111/62 97 06/21/17 22:10 Room Air 06/21/17 14:27 2 Intake and Output 06/21/17 06/21/17 06/22/17 15:00 23:00 07:00 Intake Total 1350 ml Output Total 450 ml Balance 900 ml Exam Constitutional: alert, oriented, well developed Head: atraumatic, normocephalic Eyes: EOMI, PERRL Respiratory: clear to auscultation, normal air movement Cardiovascular: other (Tachycardic with regular rhythm) Gastrointestinal: soft Extremities: normal pulses Results Result Diagram: 06/21/17 1410 06/21/17 1410 Results 24 hrs Laboratory Tests Test 06/21/17 14:10 06/21/17 15:50 06/21/17 16:28 06/21/17 18:10 White Blood Count 10.9 H Red Blood Count 3.48 L Hemoglobin 10.7 L Hematocrit 31.6 L Mean Corpuscular Volume 90.8 Mean Corpuscular Hemoglobin 30.7 Mean Corpuscular Hemoglobin Concent 33.9 Red Cell Distribution Width 13.2 Platelet Count 291 Mean Platelet Volume 10.4 Neutrophils % 84.0 H Lymphocytes % 8.8 L Monocytes % 6.3 Eosinophils % 0.1 Basophils % 0.3 Nucleated Red Blood Cells % 0.0 Neutrophils # (Manual) 9.1 H Lymphocytes # 1.0 Monocytes # 0.7 Eosinophils # 0.0 Basophils # 0.0 Nucleated Red Blood Cells # 0.0 Prothrombin Time 13.2 Prothrombin Time Ratio 1.0 INR International Normalized Ratio 1.00 Activated Partial Thromboplast Time 35.4 H Sodium Level 138 Potassium Level 3.7 Chloride Level 98 Carbon Dioxide Level 24 Anion Gap 20 H Blood Urea Nitrogen 9 Creatinine 0.58 Glucose Level 129 Lactic Acid Level 1.3 1.4 0.6 Calcium Level 9.2 Total Bilirubin 0.2 Direct Bilirubin 0.00 Indirect Bilirubin 0.2 Aspartate Amino Transf (AST/SGOT) 42 Alanine Aminotransferase (ALT/SGPT) 62 Alkaline Phosphatase 298 H Troponin I < 0.012 Total Protein 8.2 H Albumin 3.7 Globulin 4.50 H Albumin/Globulin Ratio 0.82 Urine Color COLORLESS Urine Clarity CLEAR Urine pH 6.0 Urine Specific [place] 1.003 Urine Ketones NEGATIVE Urine Nitrite NEGATIVE Urine Bilirubin NEGATIVE Urine Urobilinogen NEGATIVE Urine Leukocyte Esterase 1+ H Urine Microscopic RBC 1 Urine Microscopic WBC 0 Urine Bacteria FEW A Urine Hemoglobin 2+ H Urine Glucose NEGATIVE Urine Total Protein NEGATIVE Medications Medications Current Medications Lactated Ringer's 1,000 ml @ 125 mls/hr Q8H IV Last administered on 06/22/17 08:34; Admin Dose 125 MLS/HR; Start 06/21/17 at 23:30 Piperacillin Sod/ Tazobactam Sod (Zosyn 3.375gm/ 100 ml (Pmx)) 100 ml @ 200 mls /hr Q6 IVPB Last administered on 06/22/17 05:12; Admin Dose 200 MLS/HR; Start 06/22/17 at 00:00 Acetaminophen 325 mg 325 mg Q4H PRN PO PAIN AND OR ELEVATED TEMP; Start at 23:30 Vancomycin HCl 2 gm/Sodium Chloride 500 ml @ 125 mls/hr ONCE IVPB ; Start 06/22 at 10:00; Stop 06/22/17 at 13:59 Vancomycin HCl/ Sodium Chloride (Vancocin/NS) 250 ml @ 83.333 mls/ hr Q8H IVPB ; Start 06/22/17 at 18:00 JARROD OJEDA MD Jun 22, 2017 09:07
[2017-06-22 09:28] LABS: BASOPHILS % 0.1 % (0.0-2.0); EOSINOPHILS % 0.1 % (0.0-7.0); HEMATOCRIT 26.4 % (37.0-47.0); HEMOGLOBIN 8.8 g/dl (12.0-16.0); LYMPHOCYTES % 10.3 % (15.0-51.0); MEAN CORPUSCULAR HEMOGLOBIN 30.6 pg (29.0-33.0); MEAN CORPUSCULAR HGB CONC 33.3 g/dl (32.0-37.0); MEAN CORPUSCULAR VOLUME 91.7 fl (82.0-101.0); MEAN PLATELET VOLUME 10.3 fl (7.4-10.4); MONOCYTE # 0.5 10^3/ul (0.3-0.9); MONOCYTES % 5.2 % (0.0-11.0); NEUTROPHILS % 83.9 % (39.0-77.0); PLATELET COUNT 219 10^3/UL (140-415); RED BLOOD COUNT 2.88 10^6/ul (4.20-5.40); RED CELL DISTRIBUTION WIDTH 13.1 % (11.5-14.5); WHITE BLOOD COUNT 9.4 10^3/ul (4.8-10.8)
[2017-06-22 09:48] LABS: ALBUMIN 2.8 g/dl (3.3-4.9); ALBUMIN/GLOBULIN RATIO 0.75; BILIRUBIN,INDIRECT 0.2 mg/dl (0-1.1); BILIRUBIN,TOTAL 0.2 mg/dl (0.2-1.3); CALCIUM 8.1 mg/dl (8.4-10.2); CREATININE 0.49 mg/dl (0.44-1.00); POTASSIUM 3.5 mmol/L (3.5-5.1); TOTAL PROTEIN 6.5 g/dl (6.1-8.1)
[2017-06-22] MEDS ORDERED: VANCOMYCIN 2 GM in SOD CHLORIDE 0.9% 500 ML IVPB SCH (10:00)
--- NOTE | 2017-06-22 10:31 | RADRPT ---
PROCEDURE: XR Chest PA and Lateral CLINICAL INDICATION: Fever TECHNIQUE: PA and Lateral views of the chest were obtained. COMPARISON: 06/21/2017 FINDINGS: Cardiovascular: The cardiovascular silhouette appears unremarkable. Lung Boles: The lung boles appear clear with no nodule, alveolar infiltrate, or interstitial promi nence evident. Pleural Spaces: No pneumothorax is identified and no effusion is evident. Osseous Structures: The osseous structures appear intact. Soft Tissues: The soft tissues appear unremarkable. IMPRESSION: Stable and unremarkable chest. Physician Zeeshan Date Time Electronically viewed and signed by Vinod Quinonez Physician on 06/22/2017 10:31 RH/
[2017-06-22] MEDS: ACETAMINOPHEN 325 MG TAB PO PRN ×2 (12:42→23:37)
[2017-06-22 14:00] VITALS: BP 121/76; RESP 18
--- NOTE | 2017-06-22 16:10 | CONS ---
Date/Time of Note Date/Time of Note DATE: 06/22/17 TIME: 16:09 Consultation Date/Type/Reason Admit Date/Time Jun 21, 2017 at 18:30 Date of Consultation: Jun 22, 2017 Type of Consultation: ID Reason for Consultation Antibiotic management Social History Smoking Status: Never smoker Exam/Review of Systems Vital Signs Vitals Vital Signs Date Time Temp Pulse Resp B/P Pulse Ox O2 Delivery O2 Flow Rate FiO2 06/22/17 14:00 98.3 67 18 121/76 98 06/21/17 22:10 Room Air 06/21/17 14:27 2 Intake and Output 06/21/17 06/21/17 06/22/17 15:00 23:00 07:00 Intake Total 1350 ml Output Total 450 ml Balance 900 ml Results Result Diagram: 06/22/17 0849 06/22/17 0849 Results 24 hrs Laboratory Tests Test 06/21/17 16:28 06/21/17 18:10 06/22/17 08:49 Urine Color COLORLESS Urine Clarity CLEAR Urine pH 6.0 Urine Specific [place] 1.003 Urine Ketones NEGATIVE Urine Nitrite NEGATIVE Urine Bilirubin NEGATIVE Urine Urobilinogen NEGATIVE Urine Leukocyte Esterase 1+ H Urine Microscopic RBC 1 Urine Microscopic WBC 0 Urine Bacteria FEW A Urine Hemoglobin 2+ H Urine Glucose NEGATIVE Urine Total Protein NEGATIVE Lactic Acid Level 0.6 White Blood Count 9.4 Red Blood Count 2.88 L Hemoglobin 8.8 L Hematocrit 26.4 L Mean Corpuscular Volume 91.7 Mean Corpuscular Hemoglobin 30.6 Mean Corpuscular Hemoglobin Concent 33.3 Red Cell Distribution Width 13.1 Platelet Count 219 # Mean Platelet Volume 10.3 Neutrophils % 83.9 H Lymphocytes % 10.3 L Monocytes % 5.2 Eosinophils % 0.1 Basophils % 0.1 Nucleated Red Blood Cells % 0.0 Neutrophils # (Manual) 7.9 H Lymphocytes # 1.0 Monocytes # 0.5 Eosinophils # 0.0 Basophils # 0.0 Nucleated Red Blood Cells # 0.0 Sodium Level 136 Potassium Level 3.5 Chloride Level 101 Carbon Dioxide Level 23 Anion Gap 16 Blood Urea Nitrogen 7 Creatinine 0.49 Glucose Level 134 Calcium Level 8.1 L Total Bilirubin 0.2 Direct Bilirubin 0.00 Indirect Bilirubin 0.2 Aspartate Amino Transf (AST/SGOT) 31 Alanine Aminotransferase (ALT/SGPT) 54 Alkaline Phosphatase 215 H Total Protein 6.5 # Albumin 2.8 L Globulin 3.70 H Albumin/Globulin Ratio 0.75 Medications Medications Current Medications Lactated Ringer's 1,000 ml @ 125 mls/hr Q8H IV Last administered on 06/22/17 08:34; Admin Dose 125 MLS/HR; Start 06/21/17 at 23:30 Piperacillin Sod/ Tazobactam Sod (Zosyn 3.375gm/ 100 ml (Pmx)) 100 ml @ 200 mls /hr Q6 IVPB Last administered on 06/22/17 12:42; Admin Dose 200 MLS/HR; Start 06/22/17 at 00:00 Acetaminophen 325 mg 325 mg Q4H PRN PO PAIN AND OR ELEVATED TEMP Last administered on 06/22/17 12:42; Admin Dose 325 MG; Start 06/21/17 at 23:30 Vancomycin HCl (Vancocin) 250 ml @ 125 mls/hr Q8H IVPB ; Start 06/22/17 at 20: 00 Miscellaneous Information (*Rx Drug Level Order Reminder*) VANCO TROUGH @ 1, 100 ON... ONCE ONCE XX ; Start 06/23/17 at 11:00; Stop 06/23/17 at 11:01 RACHEL TALBOT MD Jun 22, 2017 16:10
--- NOTE | 2017-06-22 17:58 | CONS ---
DATE OF ADMISSION: 06/21/2017 DATE OF CONSULTATION: 06/22/2017 INFECTIOUS DISEASE CONSULTATION: REASON FOR CONSULTATION: Antibiotic management. HISTORY OF PRESENT ILLNESS: Tommy Lakhani is a 31-year-old female who presented to the ER complaining of fever for the past week since last Wednesday. She presented on 06/21/2017, which was Wednesday. An ultrasound was performed with an impression of a complex cystic possible tubular structure in the right adnexa measuring 7.6 x 5.3 x 4.8. Considerations included hemorrhagic ovarian cyst, hematosalpinx and hydrosalpinx. In the emergency room, she had a temperature 100.2 and she was admitted. On admission, her white count was 10.9, H and H of 10.7 and 31.6, platelet count 291,000. Today, white count is 9.4. Urine is negative for nitrites and has 1+ leukocyte esterase with few bacteria, and 0 white cells. BUN and creatinine 7/0.49. A chest x-ray shows stable unremarkable chest. A pelvic ultrasound shows the endometrium grossly thickened, increased vascularity with endometritis and/or retained products of conception are not excluded, complex cystic possibly tubular structure is again noted in the right adnexa, similar to the prior CT. Left ovary is not visualized. The patient was seen by and Dr. Waldrop. He notes that the patient is status post 2 weeks earlier. She presented to the ER complaining of fever for the past 5 days and had intermittent fever which she documented at home to be as high as 102.5. In the emergency room, she was 102.4, and pelvic ultrasound shows the endometrium grossly thickened consistent with endometritis. PAST MEDICAL HISTORY: Operations as outlined. FAMILY HISTORY: Noncontributory. SOCIAL HISTORY: She does not smoke, drink, or abuse drugs. ALLERGIES: NONE TO PENICILLIN, SULFA, OR FOODS. MEDICATION: Per chart. REVIEW OF SYSTEMS: As per HPI. PHYSICAL EXAMINATION: GENERAL: Patient is a well-developed, well-nourished female who is alert, responsive, no acute distress. VITAL SIGNS: Stable. She is afebrile. SKIN: Without generalized rash. HEENT: Within normal limits. NECK: Supple. Lymph nodes nonpalpable. CHEST: Decreased breath sounds at the bases. HEART: Without murmur or gallop. ABDOMEN: Soft, nontender, without organosplenomegaly or masses. EXTREMITIES: Without cyanosis, clubbing, or edema. RECTAL AND GENITAL: Exams deferred. NEUROLOGICAL: No focal neurological abnormality. IMPRESSION: As mentioned, her white count was 10.9 on admission and now 9.4. She is being treated with vancomycin and Zosyn for the possibility of endometritis. In addition, blood cultures have been drawn, urine cultures done, MRSA screen and stool cultures have been ordered, as well. I concur with the current regimen. I will dictate my findings to the hospitalist. Dictated By: Nolan Kiser MD JD/quentin/adriana /Document#: [id number]
[2017-06-22] MEDS ORDERED: VANCOMYCIN 1.25 GM in SOD CHLORIDE 0.9% 250 ML IVPB SCH (18:00)
--- NOTE | 2017-06-22 18:40 | QN ---
Documentation Comment patient seen and evaluated no complaints no n/v/ sob visual changes , epigastric pain vs stable afebrile abd c/d/i no distention, minimal lower abdominal tenderness extremity no edema no calf tenderness a/ s/p cd 06/06/2017, readmitted yesterday secondary to febrile and pelvic cystic lesion concerned for abscess/ hemorrhagic cyst currently on iv antibiotics, stable , afebrile p/ continue present management i left a message for Dr. Barrios (intervention radiologist ) for consult SHANNA RICO MD Jun 22, 2017 18:40
[2017-06-22 19:14] LABS: BASOPHILS % 0.1 % (0.0-2.0); EOSINOPHILS # 0.1 10^3/ul (0.0-0.5); EOSINOPHILS % 0.8 % (0.0-7.0); HEMATOCRIT 26.9 % (37.0-47.0); LYMPHOCYTES # 1.1 10^3/ul (0.8-2.9); LYMPHOCYTES % 12.6 % (15.0-51.0); MEAN CORPUSCULAR HEMOGLOBIN 30.4 pg (29.0-33.0); MEAN CORPUSCULAR HGB CONC 33.5 g/dl (32.0-37.0); MEAN CORPUSCULAR VOLUME 90.9 fl (82.0-101.0); MEAN PLATELET VOLUME 10.1 fl (7.4-10.4); MONOCYTE # 0.6 10^3/ul (0.3-0.9); MONOCYTES % 7.2 % (0.0-11.0); NEUTROPHILS % 78.6 % (39.0-77.0); PLATELET COUNT 234 10^3/UL (140-415); RED BLOOD COUNT 2.96 10^6/ul (4.20-5.40); RED CELL DISTRIBUTION WIDTH 13.2 % (11.5-14.5); WHITE BLOOD COUNT 8.9 10^3/ul (4.8-10.8)
[2017-06-22] MEDS: VANCOMYCIN 1 GM in NS 250 ML IVPB SCH (19:48)
[2017-06-22] MEDS: FERROUS SULFATE (EC) 325 MG TAB PO SCH (20:58)
[2017-06-23] MEDS: LACTATED RINGER'S 1,000 ML IV SCH ×4 (03:04→23:30)
[2017-06-23] MEDS: VANCOMYCIN 1 GM in NS 250 ML IVPB SCH ×2 (04:02→12:48)
[2017-06-23 05:32] LABS: BASOPHILS % 0.1 % (0.0-2.0); EOSINOPHILS # 0.1 10^3/ul (0.0-0.5); EOSINOPHILS % 1.5 % (0.0-7.0); HEMATOCRIT 27.1 % (37.0-47.0); HEMOGLOBIN 8.9 g/dl (12.0-16.0); LYMPHOCYTES # 0.9 10^3/ul (0.8-2.9); LYMPHOCYTES % 12.5 % (15.0-51.0); MEAN CORPUSCULAR HEMOGLOBIN 30.1 pg (29.0-33.0); MEAN CORPUSCULAR HGB CONC 32.8 g/dl (32.0-37.0); MEAN CORPUSCULAR VOLUME 91.6 fl (82.0-101.0); MEAN PLATELET VOLUME 10.1 fl (7.4-10.4); MONOCYTE # 0.7 10^3/ul (0.3-0.9); MONOCYTES % 8.8 % (0.0-11.0); NEUTROPHILS % 76.4 % (39.0-77.0); PLATELET COUNT 213 10^3/UL (140-415); RED BLOOD COUNT 2.96 10^6/ul (4.20-5.40); RED CELL DISTRIBUTION WIDTH 13.2 % (11.5-14.5); WHITE BLOOD COUNT 7.4 10^3/ul (4.8-10.8)
[2017-06-23 05:48] LABS: CALCIUM 8.1 mg/dl (8.4-10.2); CREATININE 0.54 mg/dl (0.44-1.00); MAGNESIUM 1.8 mg/dl (1.7-2.5); POTASSIUM 3.5 mmol/L (3.5-5.1)
[2017-06-23] MEDS: PIPER-TAZO 3.375 GM IV (PMX) 100 ML IVPB SCH ×3 (06:10→18:15)
[2017-06-23 08:05] VITALS: BP 116/69; RESP 16
[2017-06-23] MEDS: FERROUS SULFATE (EC) 325 MG TAB PO SCH ×2 (09:29→20:01)
[2017-06-23] MEDS: ACETAMINOPHEN 325 MG TAB PO PRN ×2 (11:57→18:25)
[2017-06-23 14:29] VITALS: BP 117/77; RESP 16
--- NOTE | 2017-06-23 16:07 | PN ---
Date/Time of Note Date/Time of Note DATE: 06/23/17 TIME: 16:05 Assessment/Plan VTE Prophylaxis VTE Prophylaxis Intervention: ambulation Lines/Catheters IV [facility]ter Type (from [facility]): Peripheral IV Urinary Cath still in place: No Assessment/Plan Chief Complaint/Hosp Course 1. Sepsis, as evidenced by fever and tachycardia, possibly secondary to endometritis versus infected adnexal cyst-improving -Continue IV antibiotic -Follow-up culture results -Follow-up CRYPTOGRAPHER recommendation, possible CT-guided drainage with IR 2. Status post recent -Site seems to be healing well. No acute issue Prophylaxis: Ambulation Problems: Subjective 24 Hr Interval Summary Constitutional: no complaints Exam/Review of Systems Vital Signs Vitals Vital Signs Date Time Temp Pulse Resp B/P Pulse Ox O2 Delivery O2 Flow Rate FiO2 06/23/17 14:29 99.7 77 16 117/77 98 06/21/17 22:10 Room Air 06/21/17 14:27 2 Intake and Output 06/22/17 06/22/17 06/23/17 14:59 22:59 06:59 Intake Total 600 ml 1750 ml 1730 ml Output Total 1200 ml 900 ml Balance 600 ml 550 ml 830 ml Exam Constitutional: alert, oriented Respiratory: clear to auscultation Cardiovascular: regular rate and rhythm Gastrointestinal: soft, No distended Musculoskeletal: nl extremities to inspection Results Result Diagram: 06/23/17 0458 06/23/17 0458 Results 24 hrs Laboratory Tests Test 06/22/17 19:00 06/23/17 04:58 06/23/17 11:05 White Blood Count 8.9 7.4 Red Blood Count 2.96 L 2.96 L Hemoglobin 9.0 L 8.9 L Hematocrit 26.9 L 27.1 L Mean Corpuscular Volume 90.9 91.6 Mean Corpuscular Hemoglobin 30.4 30.1 Mean Corpuscular Hemoglobin Concent 33.5 32.8 Red Cell Distribution Width 13.2 13.2 Platelet Count 234 213 Mean Platelet Volume 10.1 10.1 Neutrophils % 78.6 H 76.4 Lymphocytes % 12.6 L 12.5 L Monocytes % 7.2 8.8 Eosinophils % 0.8 1.5 Basophils % 0.1 0.1 Nucleated Red Blood Cells % 0.0 0.0 Neutrophils # (Manual) 7.0 5.6 Lymphocytes # 1.1 0.9 Monocytes # 0.6 0.7 Eosinophils # 0.1 0.1 Basophils # 0.0 0.0 Nucleated Red Blood Cells # 0.0 0.0 Sodium Level 142 Potassium Level 3.5 Chloride Level 105 Carbon Dioxide Level 25 Anion Gap 16 Blood Urea Nitrogen 3 L Creatinine 0.54 Glucose Level 106 Calcium Level 8.1 L Magnesium Level 1.8 Vancomycin Level Trough 8.3 L Medications Medications Current Medications Lactated Ringer's 1,000 ml @ 125 mls/hr Q8H IV Last administered on 06/23/17 03:04; Admin Dose 125 MLS/HR; Start 06/21/17 at 23:30 Piperacillin Sod/ Tazobactam Sod (Zosyn 3.375gm/ 100 ml (Pmx)) 100 ml @ 200 mls /hr Q6 IVPB Last administered on 06/23/17 11:50; Admin Dose 200 MLS/HR; Start 06/22/17 at 00:00 Acetaminophen (Tylenol Tab) 325 mg Q4H PRN PO PAIN AND OR ELEVATED TEMP Last administered on 06/23/17 11:57; Admin Dose 325 MG; Start 06/21/17 at 23:30 Ferrous Sulfate 325 mg 325 mg BID PO Last administered on 06/23/17 09:29; Admin Dose 325 MG; Start 06/22/17 at 21:00 Vancomycin HCl/ Sodium Chloride (Vancocin/NS) 250 ml @ 83.333 mls/ hr Q8H IVPB ; Start 06/23/17 at 20:00 ARLENE CHEN Jun 23, 2017 16:07
--- NOTE | 2017-06-23 19:30 | QN ---
Documentation Comment Progress note She was seen and evaluated awake alert oriented 3 Patient has no complaints Vital signs stable T-max 100.8 Abdomen clean dry and intact no distention appropriate tenderness no CVA bilateral Extremity negative edema no calf tenderness Urine culture positive for pseudomonas aeruginosa Assessment status post delivery approximately 2 weeks ago readmitted for possible pelvic abscess/hemorrhagic cyst currently on IV antibiotics Plan follow-up with infectious disease specialist Follow-up with BASIN FINISH OPERATOR TIG WELDER oncology consult Follow-up with interventional radiologist Repeat ultrasound in [email or web address]. SHANNA RICO MD Jun 23, 2017 19:30
[2017-06-23] MEDS ORDERED: LEVOTHYROXINE 25 MCG TAB PO ONE (20:00)
[2017-06-23 20:36] VITALS: BP 117/68; RESP 17
[2017-06-23] MEDS: VANCOMYCIN 1.25 GM in SOD CHLORIDE 0.9% 250 ML IVPB SCH (20:43)
--- NOTE | 2017-06-23 22:26 | PN ---
DATE: 06/23/2017 SUBJECTIVE DATA: No events overnight. The patient is alert, lying comfortably in bed. Denies pain or discomfort. Still with on and off fevers. OBJECTIVE DATA: VITAL SIGNS: T-max yesterday 100.8, T current 98.8, pulse 99, respirations 16, blood pressure 116/69, and saturation 98 on room air. LABORATORY AND DIAGNOSTIC DATA: WBC 7.4, platelets 213, no shift, no bands. BUN 3, creatinine 0.54. MICROBIOLOGY: Urine culture on admission grew Pseudomonas aeruginosa, susceptible to all antibiotics. DIAGNOSTICS: Pelvic ultrasound revealed grossly thickened endometrium with increased vascularity, endometritis or retained products of conception non included, complex cystic possibly tubular structure within the right adnexa, questionable hemorrhagic ovarian cyst, hematosalpinx and pyosalpinx. Left ovary is not visualized. No pelvic free fluid is identified. Chest x-ray revealed no evidence of acute cardiopulmonary disease. ANTIMICROBIALS: The patient remains on vanc and Zosyn. PHYSICAL EXAMINATION: GENERAL: Well-developed middle-aged woman who is awake, in no distress. HEENT: Head atraumatic, normocephalic. Sclerae anicteric. Buccal mucosa pink. NECK: Supple. CHEST: Rise symmetrical. Breath sounds diminished at the bases. HEART: S1, S2. ABDOMEN: Soft, bowel sounds present. EXTREMITIES: Without cyanosis. ASSESSMENT: 1. Systemic inflammatory response syndrome, persistent fevers and evidence of pelvic cystic lesion, questionable abscess versus hemorrhagic cyst, APPLICATION INTEGRATION ENGINEER on case. 2. Pseudomonas aeruginosa urinary tract infection (UTI). 3. Status post recent . PLAN: 1. The patient remains stable. 2. White blood cell count tracing down. 3. She is covered with broad-spectrum antibiotics. 4. We will continue present care. 5. Follow APPLICATION INTEGRATION ENGINEER recommendations. Dictated By: Nyla Solis NP /quentin/latasha /Document#: [id number]
[2017-06-24] MEDS: PIPER-TAZO 3.375 GM IV (PMX) 100 ML IVPB SCH ×4 (00:48→17:57)
[2017-06-24 02:41] VITALS: BP 118/70; RESP 18
[2017-06-24 05:53] LABS: BASOPHILS % 0.1 % (0.0-2.0); EOSINOPHILS # 0.1 10^3/ul (0.0-0.5); EOSINOPHILS % 1.2 % (0.0-7.0); HEMATOCRIT 26.8 % (37.0-47.0); HEMOGLOBIN 8.8 g/dl (12.0-16.0); LYMPHOCYTES # 1.3 10^3/ul (0.8-2.9); LYMPHOCYTES % 17.5 % (15.0-51.0); MEAN CORPUSCULAR HEMOGLOBIN 29.5 pg (29.0-33.0); MEAN CORPUSCULAR HGB CONC 32.8 g/dl (32.0-37.0); MEAN CORPUSCULAR VOLUME 89.9 fl (82.0-101.0); MEAN PLATELET VOLUME 10.5 fl (7.4-10.4); MONOCYTE # 0.6 10^3/ul (0.3-0.9); MONOCYTES % 8.3 % (0.0-11.0); NEUTROPHILS % 72.1 % (39.0-77.0); NUCLEATED RED BLOOD CELLS% 0.3 /100WBC (0.0-0.0); PLATELET COUNT 255 10^3/UL (140-415); RED BLOOD COUNT 2.98 10^6/ul (4.20-5.40); RED CELL DISTRIBUTION WIDTH 13.5 % (11.5-14.5); WHITE BLOOD COUNT 7.3 10^3/ul (4.8-10.8)
[2017-06-24] MEDS: VANCOMYCIN 1.25 GM in SOD CHLORIDE 0.9% 250 ML IVPB SCH ×3 (05:59→23:51)
[2017-06-24 06:14] LABS: CALCIUM 8.3 mg/dl (8.4-10.2); CREATININE 0.55 mg/dl (0.44-1.00); POTASSIUM 3.4 mmol/L (3.5-5.1)
[2017-06-24] MEDS: LACTATED RINGER'S 1,000 ML IV SCH ×3 (07:30→23:51)
[2017-06-24 08:00] VITALS: BP 132/87; RESP 19
[2017-06-24] MEDS: FERROUS SULFATE (EC) 325 MG TAB PO SCH ×2 (09:36→20:36)
[2017-06-24] MEDS ORDERED: POTASSIUM CHLORIDE (SR) 20 MEQ TAB PO STA (12:14)
--- NOTE | 2017-06-24 13:46 | RADRPT ---
PROCEDURE: US Pelvis. CLINICAL INDICATION: Pain. section 2 weeks ago. TECHNIQUE: Multiple transabdominal and transvaginal sonographic images of the pelvis were obtained . COMPARISON: Pelvic ultrasound 06/21/2017. CT abdomen/pelvis 06/18/2017. FINDINGS: The uterus is anteverted in position and measures approximately 10.4 x 6.5 x 6.8 cm (241 cc). The e ndometrial complex is not clearly defined. Heterogeneity of the uterine myometrium has slightly imp roved. Trace fluid is seen within the endocervical canal. There is no free pelvic fluid. The right ovary measures 7.5 x 5.6 x 6.1 cm (136 cc) and is grossly unchanged in size. A multi septa te appearance remains and is unchanged to slightly improved. The left ovary is not visualized and l ikely obscured by surrounding gastrointestinal air. There is no free pelvic fluid or evidence of spa ce-occupying pelvic fluid collection. IMPRESSION: Heterogeneous uterus with poorly defined endometrium. Enlarged multi septate appearance of the right ovary, unchanged to slightly improved. RPTAT: HLST .Kasey Nuñez MD, MD Date Time Electronically viewed and signed by .Kasey Nuñez MD, on 06/24/2017 13:46 .T/
--- NOTE | 2017-06-24 14:58 | PN ---
DATE: 06/24/2017 SUBJECTIVE DATA: No events overnight. Patient looks comfortable. Had been afebrile overnight. Temperature 98, pulse 75, respirations 20, blood pressure 132/87, saturation 97 on room air. LABORATORY AND DIAGNOSTIC DATA: WBC 7.3, platelets 255, no shift, no bands. BUN 3, creatinine 0.55. ANTIMICROBIALS: Vancomycin, Zosyn. PHYSICAL EXAMINATION: Well-developed, middle-aged woman who is awake, in no distress. HEENT: Head atraumatic, normocephalic. Sclerae anicteric. Buccal mucosa pink. NECK: Supple. Chest rise symmetric. CHEST: Chest rise symmetrical. Breath sounds clear. HEART: S1, S2. ABDOMEN: Soft, bowel sounds present. EXTREMITIES: Without cyanosis. ASSESSMENT: 1. Systemic inflammatory response syndrome with fevers and leukocytosis, improving. 2. Pelvic cystic lesion, questionable abscess versus hemorrhagic cyst. CARBONATING STONE CLEANER follows. 3. Pseudomonas aeruginosa UTI. 4. Status post recent . PLAN: The patient remains stable. Continue present care. Continue on antibiotics. I will await for final workup and follow SUCCESS COACH recommendations. Dictated By: Nyla Solis NP /quentin/ /Document#: [id number]
--- NOTE | 2017-06-24 17:06 | PN ---
Date/Time of Note Date/Time of Note DATE: 06/24/17 TIME: 17:02 Assessment/Plan VTE Prophylaxis VTE Prophylaxis Intervention: ambulation Lines/Catheters IV C[facility] Type (from [facility] Peripheral IV Urinary Cath still in place: No Assessment/Plan Chief Complaint/Hosp Course 1. Sepsis, as evidenced by fever and tachycardia, possibly secondary to endometritis versus infected adnexal cyst-improving -Continue IV antibiotics, ID consultation appreciated -Repeat ultrasound still shows heterogeneous uterus -Follow-up culture results -Follow-up VICE PRESIDENT SALES recommendation, possible CT-guided drainage with IR if does not improve 2. Status post recent -Site seems to be healing well. No acute issue 3. Urinary tract colonization -Urine culture shows Pseudomonas, UA shows no pyuria and patient is asymptomatic Prophylaxis: Ambulation Problems: Subjective 24 Hr Interval Summary Constitutional: no complaints Exam/Review of Systems Vital Signs Vitals Vital Signs Date Time Temp Pulse Resp B/P Pulse Ox O2 Delivery O2 Flow Rate FiO2 06/24/17 14:02 99.7 06/24/17 08:00 75 19 132/87 97 06/21/17 22:10 Room Air 06/21/17 14:27 2 Intake and Output 06/23/17 06/23/17 06/24/17 15:00 23:00 07:00 Intake Total 350 ml 2330 ml 1700 ml Balance 350 ml 2330 ml 1700 ml Exam Constitutional: alert, oriented Respiratory: clear to auscultation Cardiovascular: regular rate and rhythm Gastrointestinal: soft, No distended Musculoskeletal: nl extremities to inspection Results Result Diagram: 06/24/17 0447 06/24/17 0447 Results 24 hrs Laboratory Tests Test 06/24/17 04:47 White Blood Count 7.3 Red Blood Count 2.98 L Hemoglobin 8.8 L Hematocrit 26.8 L Mean Corpuscular Volume 89.9 Mean Corpuscular Hemoglobin 29.5 Mean Corpuscular Hemoglobin Concent 32.8 Red Cell Distribution Width 13.5 Platelet Count 255 Mean Platelet Volume 10.5 H Neutrophils % 72.1 Lymphocytes % 17.5 Monocytes % 8.3 Eosinophils % 1.2 Basophils % 0.1 Nucleated Red Blood Cells % 0.3 H Neutrophils # (Manual) 5.2 Lymphocytes # 1.3 Monocytes # 0.6 Eosinophils # 0.1 Basophils # 0.0 Nucleated Red Blood Cells # 0.0 Sodium Level 142 Potassium Level 3.4 L Chloride Level 104 Carbon Dioxide Level 26 Anion Gap 15 Blood Urea Nitrogen 3 L Creatinine 0.55 Glucose Level 103 Calcium Level 8.3 L Medications Medications Current Medications Lactated Ringer's 1,000 ml @ 125 mls/hr Q8H IV Last administered on 06/23/17 18:15; Admin Dose 125 MLS/HR; Start 06/21/17 at 23:30 Piperacillin Sod/ Tazobactam Sod (Zosyn 3.375gm/ 100 ml (Pmx)) 100 ml @ 200 mls /hr Q6 IVPB Last administered on 06/24/17 13:00; Admin Dose 200 MLS/HR; Start 06/22/17 at 00:00 Acetaminophen (Tylenol Tab) 325 mg Q4H PRN PO PAIN AND OR ELEVATED TEMP Last administered on 06/23/17 18:25; Admin Dose 325 MG; Start 06/21/17 at 23:30 Ferrous Sulfate 325 mg 325 mg BID PO Last administered on 06/24/17 09:36; Admin Dose 325 MG; Start 06/22/17 at 21:00 Vancomycin HCl/ Sodium Chloride (Vancocin/NS) 250 ml @ 83.333 mls/ hr Q8H IVPB Last administered on 06/24/17 14:01; Admin Dose 83.333 MLS/HR; Start at 20:00 Miscellaneous Information (*Rx Drug Level Order Reminder*) VANCO TROUGH @ 1, 900 ON... ONCE ONCE XX ; Start 06/24/17 at 19:00; Stop 06/24/17 at 19:01 ARLENE CHEN Jun 24, 2017 17:06
[2017-06-24 19:00] VITALS: BP 129/73; RESP 18
--- NOTE | 2017-06-24 22:46 | QN ---
Documentation Comment Patient seen and evaluated Awake alert oriented 3 No complaint Negative headache nausea vomiting shortness of breath visual changes epigastric pain Tolerating diet positive flatulence positive bowel movement Vital signs stable afebrile Abdomen minimal right CVA tenderness incision clean dry and intact no distention nontender Extremity negative edema no calf tenderness Ultrasound performed today the right ovary measures 7.5 x 5.6 x 6.1 cm and is grossly unchanged in size Assessment right ovarian cyst/septated (patient reports she had this ovarian cyst from before) Improve symptoms of pyelonephritis Stable afebrile Plan discussed with infectious disease for outpatient antibiotic treatment Patient to follow-up with MACHINE PIE MAKER oncologist as outpatient SHANNA RICO MD Jun 24, 2017 22:46
[2017-06-25 02:00] VITALS: BP 111/66; RESP 18
[2017-06-25] MEDS: PIPER-TAZO 3.375 GM IV (PMX) 100 ML IVPB SCH ×5 (02:41→23:33)
[2017-06-25 05:22] LABS: BASOPHILS % 0.1 % (0.0-2.0); EOSINOPHILS # 0.1 10^3/ul (0.0-0.5); EOSINOPHILS % 1.1 % (0.0-7.0); HEMATOCRIT 27.4 % (37.0-47.0); LYMPHOCYTES # 1.3 10^3/ul (0.8-2.9); LYMPHOCYTES % 15.8 % (15.0-51.0); MEAN CORPUSCULAR HEMOGLOBIN 29.4 pg (29.0-33.0); MEAN CORPUSCULAR HGB CONC 32.8 g/dl (32.0-37.0); MEAN CORPUSCULAR VOLUME 89.5 fl (82.0-101.0); MEAN PLATELET VOLUME 10.5 fl (7.4-10.4); MONOCYTE # 0.6 10^3/ul (0.3-0.9); MONOCYTES % 7.5 % (0.0-11.0); NEUTROPHILS % 74.7 % (39.0-77.0); PLATELET COUNT 249 10^3/UL (140-415); RED BLOOD COUNT 3.06 10^6/ul (4.20-5.40); RED CELL DISTRIBUTION WIDTH 13.5 % (11.5-14.5); WHITE BLOOD COUNT 8.4 10^3/ul (4.8-10.8)
[2017-06-25 06:08] LABS: CALCIUM 8.3 mg/dl (8.4-10.2); CREATININE 0.6 mg/dl (0.44-1.00); POTASSIUM 3.5 mmol/L (3.5-5.1)
[2017-06-25] MEDS: LACTATED RINGER'S 1,000 ML IV SCH ×3 (07:30→20:26)
[2017-06-25 08:19] VITALS: BP 120/74; RESP 18
[2017-06-25] MEDS: FERROUS SULFATE (EC) 325 MG TAB PO SCH ×2 (08:42→20:26)
[2017-06-25] MEDS: VANCOMYCIN 1.25 GM in SOD CHLORIDE 0.9% 250 ML IVPB SCH ×2 (08:45→16:21)
--- NOTE | 2017-06-25 12:28 | PN ---
DATE: 06/25/2017 SUBJECTIVE DATA: Patient is alert, feels better, looks comfortable. She is afebrile. T-max 99.7 yesterday. Temp current 99.6, pulse 83, respirations 18, blood pressure 111/66, saturation 99 percent. LABORATORY AND DIAGNOSTIC DATA: WBC 8.4, platelets 249,000; no bands, no shift. BUN 4, creatinine 0.60. Repeat pelvic ultrasound yesterday revealed heterogenous uterus with poorly-defined endometrial and enlarged multiseptated appearance of the right ovary, unchanged to slightly improved. ANTIMICROBIALS: The patient is on vancomycin and Zosyn. OBJECTIVE DATA: GENERAL: This is a well-developed, middle-aged woman who is alert, in no distress. HEENT: Head atraumatic, normocephalic. Sclerae anicteric. Buccal mucosa pink. NECK: Supple. CHEST: Rise symmetrical. Breath sounds diminished at the bases. HEART: S1, S2. ABDOMEN: Soft, bowel sounds present. EXTREMITIES: Without cyanosis or edema. SKIN: No jaundice. No cyanosis. ASSESSMENT: 1. Resolving sepsis. 2. Pelvic cystic lesion, questionable abscess, ultrasound without changes. PRODUCTION LINE MANAGER follows. 3. Pseudomonas aeruginosa urinary tract infection. 4. Status post section. PLAN: The patient is doing better, overall improving. We will continue on her on current regimen. We will discuss with PRODUCTION LINE MANAGER further plan of care. Dictated By: Nyla Solis NP /quentin/ec /Document#: [id number]
[2017-06-25 14:00] VITALS: BP 124/71; RESP 18
--- NOTE | 2017-06-25 16:06 | PN ---
Date/Time of Note Date/Time of Note DATE: 06/25/17 TIME: 16:05 Assessment/Plan VTE Prophylaxis VTE Prophylaxis Intervention: ambulation Lines/Catheters IV C[facility]ter Type (from [facility]): Peripheral IV Urinary Cath still in place: No Assessment/Plan Chief Complaint/Hosp Course 1. Sepsis, as evidenced by fever and tachycardia, possibly secondary to endometritis versus infected adnexal cyst-improving -Continue IV antibiotics, ID consultation appreciated -Repeat ultrasound still shows heterogeneous uterus -Follow-up culture results -Follow-up ACCOUNTS OFFICER recommendation, possible CT-guided drainage with IR if does not improve -Patient still having fevers, continue antibiotics 2. Status post recent -Site seems to be healing well. No acute issue 3. Urinary tract colonization -Urine culture shows Pseudomonas, UA shows no pyuria and patient is asymptomatic Prophylaxis: Ambulation Problems: Subjective 24 Hr Interval Summary Constitutional: no complaints Exam/Review of Systems Vital Signs Vitals Vital Signs Date Time Temp Pulse Resp B/P Pulse Ox O2 Delivery O2 Flow Rate FiO2 06/25/17 08:19 98.2 75 18 120/74 96 06/21/17 22:10 Room Air 06/21/17 14:27 2 Intake and Output 06/24/17 06/24/17 06/25/17 14:59 22:59 06:59 Intake Total 530 ml 1270 ml 1000 ml Output Total 700 ml Balance 530 ml 1270 ml 300 ml Exam Constitutional: alert, oriented Respiratory: clear to auscultation Cardiovascular: regular rate and rhythm Gastrointestinal: soft, No distended Musculoskeletal: nl extremities to inspection Results Result Diagram: 06/25/17 0455 06/25/17 0455 Results 24 hrs Laboratory Tests Test 06/24/17 19:45 06/25/17 04:55 Vancomycin Level Trough 16.9 White Blood Count 8.4 Red Blood Count 3.06 L Hemoglobin 9.0 L Hematocrit 27.4 L Mean Corpuscular Volume 89.5 Mean Corpuscular Hemoglobin 29.4 Mean Corpuscular Hemoglobin Concent 32.8 Red Cell Distribution Width 13.5 Platelet Count 249 Mean Platelet Volume 10.5 H Neutrophils % 74.7 Lymphocytes % 15.8 Monocytes % 7.5 Eosinophils % 1.1 Basophils % 0.1 Nucleated Red Blood Cells % 0.0 Neutrophils # (Manual) 6.3 Lymphocytes # 1.3 Monocytes # 0.6 Eosinophils # 0.1 Basophils # 0.0 Nucleated Red Blood Cells # 0.0 Sodium Level 139 Potassium Level 3.5 Chloride Level 106 Carbon Dioxide Level 26 Anion Gap 11 Blood Urea Nitrogen 4 L Creatinine 0.60 Glucose Level 95 Calcium Level 8.3 L Medications Medications Current Medications Lactated Ringer's 1,000 ml @ 125 mls/hr Q8H IV Last administered on 06/24/17 23:51; Admin Dose 125 MLS/HR; Start 06/21/17 at 23:30 Piperacillin Sod/ Tazobactam Sod (Zosyn 3.375gm/ 100 ml (Pmx)) 100 ml @ 200 mls /hr Q6 IVPB Last administered on 06/25/17 13:37; Admin Dose 200 MLS/HR; Start 06/22/17 at 00:00 Acetaminophen (Tylenol Tab) 325 mg Q4H PRN PO PAIN AND OR ELEVATED TEMP Last administered on 06/23/17 18:25; Admin Dose 325 MG; Start 06/21/17 at 23:30 Ferrous Sulfate 325 mg 325 mg BID PO Last administered on 06/25/17 08:42; Admin Dose 325 MG; Start 06/22/17 at 21:00 Vancomycin HCl/ Sodium Chloride (Vancocin/NS) 250 ml @ 83.333 mls/ hr Q8H IVPB Last administered on 06/25/17 08:45; Admin Dose 83.333 MLS/HR; Start 06/25/17 at 08:00 ARLENE CHEN Jun 25, 2017 16:06
[2017-06-25 19:30] VITALS: BP 107/58; PULSE 82; RESP 18
--- NOTE | 2017-06-25 21:01 | QN ---
Documentation Comment Progress note Patient seen and evaluated awake alert oriented 3 negative complaints negative headache nausea vomiting shortness of breath visual changes epigastric pain No signs stable afebrile Abdomen clean dry and intact negative distention nontender negative CVA bilateral Extremity negative edema no calf tenderness Assessment status post delivery, resolving symptoms of pyelonephritis, ovarian cyst/complex Afebrile stable Plan discussed with infectious disease specialist tomorrow for possible discharge home on oral antibiotics She may follow-up with gynecology oncology for her ovarian cyst as an outpatient THEOSHANNA MORGAN MD Jun 25, 2017 21:00
[2017-06-26] MEDS: VANCOMYCIN 1.25 GM in SOD CHLORIDE 0.9% 250 ML IVPB SCH ×2 (00:59→08:54)
[2017-06-26 02:00] VITALS: BP 111/61; RESP 18
[2017-06-26 05:21] LABS: BASOPHILS % 0.2 % (0.0-2.0); EOSINOPHILS # 0.1 10^3/ul (0.0-0.5); EOSINOPHILS % 1.4 % (0.0-7.0); HEMATOCRIT 28.8 % (37.0-47.0); HEMOGLOBIN 9.4 g/dl (12.0-16.0); LYMPHOCYTES # 1.5 10^3/ul (0.8-2.9); LYMPHOCYTES % 14.8 % (15.0-51.0); MEAN CORPUSCULAR HEMOGLOBIN 29.4 pg (29.0-33.0); MEAN CORPUSCULAR HGB CONC 32.6 g/dl (32.0-37.0); MEAN PLATELET VOLUME 10.3 fl (7.4-10.4); MONOCYTE # 0.6 10^3/ul (0.3-0.9); MONOCYTES % 6.3 % (0.0-11.0); NEUTROPHILS % 76.7 % (39.0-77.0); PLATELET COUNT 297 10^3/UL (140-415); RED CELL DISTRIBUTION WIDTH 13.5 % (11.5-14.5); WHITE BLOOD COUNT 9.8 10^3/ul (4.8-10.8)
[2017-06-26] MEDS: PIPER-TAZO 3.375 GM IV (PMX) 100 ML IVPB SCH ×2 (05:53→12:49)
[2017-06-26 06:00] LABS: CALCIUM 8.6 mg/dl (8.4-10.2); CREATININE 0.63 mg/dl (0.44-1.00); POTASSIUM 3.6 mmol/L (3.5-5.1)
[2017-06-26 07:22] VITALS: BP 116/61; RESP 18
[2017-06-26] MEDS: FERROUS SULFATE (EC) 325 MG TAB PO SCH (08:31)
--- NOTE | 2017-06-26 12:45 | CONS ---
Date/Time of Note Date/Time of Note DATE: 06/26/17 TIME: 12:13 Assessment/Plan Assessment/Plan Chief Complaint/Hosp Course ID PROGRESS NOTE CURRENT ABX: ABX Day #5+ =>Vanco IV + Zosyn 24H INTERVAL SUMMARY * Stable -- DC planning in process * Afebrile >48H w/low grade TMax 99.1, s/p high fevers > 5 days ago * WBC, Neuts/lactic acid => All normalized * MICROBIOLOGY: * 06/21 BCx (-); 06/21 Urine Cx (+) 06/21 URINE CX URINE CULTURE Final Organism 1 PSEUDOMONAS AERUGINOSA COLONY COUNT >100,000 CFU/ml Organism 2 MIXED GRAM POSITIVE ORGANISMS COLONY COUNT 10,000 - 20,000 CFU/ml * 06/18 BCx (-); 06/18 Urine Cx: 06/18 Urine Cx URINE CULTURE Final Organism 1 MIXED GRAM POSITIVE ORGANISMS COLONY COUNT >100,000 CFU/ml PHYSICAL EXAMINATION: GENERAL: 31 F, VSS, afebrile HEENT: Unremarkable NECK: Supple. Trachea midline. CHEST: Rise symmetrical bilaterally without dyspnea on room air on observation HEART: Radial pulse RRR ABDOMEN: Soft,post EXT: WArm dry, ambulatory in room ID ASSESSMENT 31 yo F s/post- 06/06/17 = Urgent due to acute cord prolapse w/ placental abruption, UTI readmit with: 1. s/p SEPSIS on admission w/SIRS (+)TMax 102.0 in ED, increased Neuts @ 78.6 , increased Lactic acid 1.4 -> now down to 0.6 => due to #2 (?vs #3) * 06/24/17 BCx (-) to date * 06/18/17 BCx (-) Final 2. Acute pyelonephritis => Complicated polymicrobial UTI w/urosepsis * Failed OP PO ABX Rx post * 06/21 URINE CX URINE CULTURE Final Organism 1 PSEUDOMONAS AERUGINOSA COLONY COUNT >100,000 CFU/ml Organism 2 MIXED GRAM POSITIVE ORGANISMS COLONY COUNT 10,000 - 20,000 CFU/ml P.AERUG M.I.C. RX --------- --- AMIKACIN <=2 S CEFEPIME 2 S CEFTAZIDIME 4 S CIPROFLOXACIN <=0.25 S GENTAMICIN <=1 S IMIPENEM 1 S LEVOFLOXACIN 1 S TOBRAMYCIN <=1 S PIPERACILLIN/TAZOBACTAM 8 S * 06/18 Urine Cx URINE CULTURE Final Organism 1 MIXED GRAM POSITIVE ORGANISMS COLONY COUNT >100,000 CFU/ml 3. Right ovary Complex cystic, possibly tubular structure is again noted in the right adnexa, similar to the prior CT - considerations include hemorrhagic ovarian cyst(s), hematosalpinx, and pyosalpinx. * Enlarged multi septate appearance of the right ovary, unchanged to slightly improved. * CT 06/18/17 Findings may be compatible with hydrosalpinx, though pyosalpinx/ tubo-ovarian abscess is not excluded w/some fainting of this stranding of the fat. ( - ) MRSA Nares INVASIVES: PIV ABX ALLERGY: KNDA CURRENT ABX: ABX Day #5+ =>Vanco IV + Zosyn ID RECOMMENDATIONS * Case report from ID colleagues/ID attending Dr. Kiser reviewed: Patient may DC home on PO ABX when afebrile 48Hrs & cleared by BUNG SEWER. * May DC home today on the following PO ABX per BUNG SEWER * 1. Levaquin 500mg po daily x10 days [#30] * 2. Augmentin 250mg/125mg TAB po TID x10 days Problems: Consultation Date/Type/Reason Admit Date/Time Jun 21, 2017 at 18:30 Initial Consult Date 06/22/17 Type of Consultation: ID Exam/Review of Systems Vital Signs Vitals Vital Signs Date Time Temp Pulse Resp B/P Pulse Ox O2 Delivery O2 Flow Rate FiO2 06/26/17 07:22 98.9 100 18 116/61 98 06/25/17 19:30 Room Air Intake and Output 06/25/17 06/25/17 06/26/17 15:00 23:00 07:00 Intake Total 350 ml 1150 ml 2150 ml Output Total 1000 ml Balance 350 ml 1150 ml 1150 ml Results Result Diagram: 06/26/17 0440 06/26/17 0440 Results 24 hrs Laboratory Tests Test 06/26/17 04:40 White Blood Count 9.8 Red Blood Count 3.20 L Hemoglobin 9.4 L Hematocrit 28.8 L Mean Corpuscular Volume 90.0 Mean Corpuscular Hemoglobin 29.4 Mean Corpuscular Hemoglobin Concent 32.6 Red Cell Distribution Width 13.5 Platelet Count 297 Mean Platelet Volume 10.3 Neutrophils % 76.7 Lymphocytes % 14.8 L Monocytes % 6.3 Eosinophils % 1.4 Basophils % 0.2 Nucleated Red Blood Cells % 0.0 Neutrophils # (Manual) 7.5 Lymphocytes # 1.5 Monocytes # 0.6 Eosinophils # 0.1 Basophils # 0.0 Nucleated Red Blood Cells # 0.0 Sodium Level 140 Potassium Level 3.6 Chloride Level 105 Carbon Dioxide Level 27 Anion Gap 12 Blood Urea Nitrogen 4 L Creatinine 0.63 Glucose Level 99 Calcium Level 8.6 Medications Medications Current Medications Lactated Ringer's 1,000 ml @ 125 mls/hr Q8H IV Last administered on 06/25/17 20:26; Admin Dose 125 MLS/HR; Start 06/21/17 at 23:30 Piperacillin Sod/ Tazobactam Sod (Zosyn 3.375gm/ 100 ml (Pmx)) 100 ml @ 200 mls /hr Q6 IVPB Last administered on 06/26/17 05:53; Admin Dose 200 MLS/HR; Start 06/22/17 at 00:00 Acetaminophen (Tylenol Tab) 325 mg Q4H PRN PO PAIN AND OR ELEVATED TEMP Last administered on 06/23/17 18:25; Admin Dose 325 MG; Start 06/21/17 at 23:30 Ferrous Sulfate 325 mg 325 mg BID PO Last administered on 06/26/17 08:31; Admin Dose 325 MG; Start 06/22/17 at 21:00 Vancomycin HCl/ Sodium Chloride (Vancocin/NS) 250 ml @ 83.333 mls/ hr Q8H IVPB Last administered on 06/26/17 08:54; Admin Dose 83.333 MLS/HR; Start 06/25/17 at 08:00 IGOR BRAY NP Jun 26, 2017 12:24
[2017-06-26] MEDS ORDERED: LEVO500T72 PO (14:36)
[2017-06-26] MEDS ORDERED: AMOX1TAB9 PO (14:36)
--- NOTE | 2017-06-26 14:37 | PDOCDIS ---
Discharge Instructions CONDITION Patient Condition: Good HOME CARE INSTRUCTIONS: Diet Instructions: Regular ACTIVITY: Activity Restrictions: Slowly Increase Activity Rest between Activity Avoid heavy lifting Bathing Restrictions: Shower FOLLOW UP/APPOINTMENTS Follow-up Plan F/U WITH YOUR PCP AND BEEF SKINNER IN 1-2 WEEKS ARLENE CHEN Jun 26, 2017 14:37
--- NOTE | 2017-06-26 14:52 | DS ---
Date/Time of Note Date/Time of Note DATE: 06/26/17 TIME: 14:42 Discharge Summary Admission/Discharge Info Admit Date/Time Jun 21, 2017 at 18:30 Discharge Date/Time June 26, 2017 Discharge Diagnosis 1. Sepsis, as evidenced by fever and tachycardia secondary to endometritis and/ or UTI-resolved -Status post IV antibiotics, ID consultation appreciated -DC with p.o. antibiotics -Follow-up with LOSS PREVENTION COORDINATOR 2. Status post recent -Site seems to be healing well. No acute issue Patient Condition: Good Hospital Course Pt is s a 31-year-old female who is status post 2 weeks ago who presented to the ER complaining of fever. Patient was found to have evidence of sepsis on antibiotics. Patient was seen by LOSS PREVENTION COORDINATOR as well as ID received IV antibiotics. Pelvic ultrasound showed possible endometritis versus retained products of conception as well as complex cystic, possibly tubular structure is again noted in the right adnexa, similar to the prior CT - considerations include hemorrhagic ovarian cyst(s), hematosalpinx, and pyosalpinx. UA was negative but urine culture showed Pseudomonas. Patient sepsis resolved IV antibiotics patient was clear for DC per oncology as well as ID. Patient had no further complaints of abdominal discomfort and on day of discharge patient had no acute complaints, physical exam, vitals labs are stable and questions are answered. Home Meds Active Scripts Amoxicillin/Potassium Clav (Amox-Clav 500-125 mg Tablet) 500-125 mg Tab, 1 TAB PO Q8 for 10 Days, #30 TAB Prov:ARLENE CHEN 06/26/17 Levofloxacin* (Levaquin*) 500 Mg Tablet, 500 MG PO DAILY for 10 Days, #10 TAB Prov:ARLENE CHEN 06/26/17 Acetaminophen* (Tylophen*) 500 Mg Capsule, 1 CAP PO Q6H Y for PAIN AND OR ELEVATED TEMP, #20 CAP Prov:VEE GUSTAFSON 06/18/17 Reported Medications Docusate Sodium* (Docusate Sodium*) 100 Mg Capsule, 100 MG PO BID, #60 CAP 06/21/17 Ferrous Sulfate (Ferrous Sulfate) 325 Mg Tablet.dr, 325 MG PO BID 06/05/17 Discontinued Reported Medications Vit No.124/Iron/FA ( Vitamin Tablet) 1 Each Tablet, 1 EACH PO, TAB 06/05/17 Discontinued Scripts Cephalexin* (Keflex*) 500 Mg Capsule, 500 MG PO QID for 5 Days, CAP Prov:BRAYANZULLYVEE Rivas 06/18/17 Follow-up Plan Follow-up with LOSS PREVENTION COORDINATOR and PCP 1-2 weeks Primary Care Provider River Stratton MD Time spent on discharge: > 30 minutes ARLENE CHEN Jun 26, 2017 14:52
== END 2017-06-26 16:10 | disposition home or self-care (01) | DRG 776 ==
LOC: FTE 11:20 → MS1 18:30
PROVIDERS: ADMIT Obstetrics & Gynecology; ATTEND Obstetrics & Gynecology
DX: O85 Puerperal sepsis (principal); O86.12 Endometritis following delivery; N39.0 Urinary tract infection, site not specified; B96.5 Pseudomonas (aeruginosa) (mallei) (pseudomallei) as the cause of diseases classified elsewhere
CPT/HCPCS: 36415; 71010; 71020; 76830; 76856; 80048; 80053; 80202; 81001; 83605; 83735; 84484; 85025; 85610; 85730; 87040; 87081; 87086; 93005; 96374; 96376; J2543; J3370; J7030; J7040; J7050; J7120

== ENCOUNTER 2017-08-19 13:04 | Emergency (ER) | payer OTHER ==
[~2017-08-19] VITALS: Ht 160 cm; Wt 80.5 kg
[~2017-08-19 13:04] MED LIST changes: +AMOX1TAB9 PO; -CEPH-443 PO; +DOCU-159 PO; +LEVO500T72 PO; -PREN-93 PO
[2017-08-19 13:06] VITALS: Ht 160 cm; Wt 80.5 kg
[2017-08-19] MEDS ORDERED: CLOT30CR24 TOP (16:11)
--- NOTE | 2017-08-19 16:47 | ERD ---
ER Documentation Chief Complaint Chief Complaint HAS ITCH ON BREAST AND THEY ARE PAINFUL PUMPING MILK BABY BORN JUN 24 HPI This is a 32-year-old female presents to the ER for itchiness below bilateral breasts. Patient states she is currently breast-feeding her baby who is in the NICU, patient denies any breast pain redness, swelling or warmth to the touch. She does not have any nipple discharge. She has not had any fevers or chills. ROS 12 point review of systems was done, all negative except per HPI. Medications Home Meds Active Scripts Clotrimazole* (Clotrimazole* AF) 1% - 30 Gm Cream.gm., 1 APPLIC TOP BID for 7 Days, TUB Prov:PADMINI OLSEN C 08/19/17 Amoxicillin/Potassium Clav (Amox-Clav 500-125 mg Tablet) 500-125 mg Tab, 1 TAB PO Q8 for 10 Days, #30 TAB Prov:ARLENE CHEN 06/26/17 Levofloxacin* (Levaquin*) 500 Mg Tablet, 500 MG PO DAILY for 10 Days, #10 TAB Prov:ARLENE CHEN 06/26/17 Acetaminophen* (Tylophen*) 500 Mg Capsule, 1 CAP PO Q6H Y for PAIN AND OR ELEVATED TEMP, #20 CAP Prov:VEE GUSTAFSON F 06/18/17 Reported Medications Docusate Sodium* (Docusate Sodium*) 100 Mg Capsule, 100 MG PO BID, #60 CAP 06/21/17 Ferrous Sulfate (Ferrous Sulfate) 325 Mg Tablet.dr, 325 MG PO BID 06/05/17 Allergies Allergies: Coded Allergies: No Known Allergy (Unverified , 06/21/17) PMhx/Soc History of Surgery: Yes (C- SECTION 2 WEEKS AGO) Anesthesia Reaction: No Hx Neurological Disorder: No Hx Respiratory Disorders: No Hx Cardiac Disorders: No Hx Psychiatric Problems: No Hx Miscellaneous Medical Probl: Yes Hx Alcohol Use: No Hx Substance Use: No Hx Tobacco Use: No Physical Exam Vitals Vital Signs Date Time Temp Pulse Resp B/P Pulse Ox O2 Delivery O2 Flow Rate FiO2 08/19/17 13:06 98.6 66 18 119/81 99 Physical Exam GENERAL: The patient is well developed and appropriate for usual state of health , in no apparent distress. HEENT: Atraumatic. BREAST: breasts are symmetrical, there is no erythema, or warmth to the touch, there is no discharge. Does have an area of erythema below both breasts, it is beefy red with satellite lesions. CHEST: Clear to auscultation bilaterally. There are no rales, wheezes or rhonchi. HEART: Regular rate and rhythm. No murmurs, clicks, rubs or gallops. NEURO: Alert and oriented. Procedures/MDM This is a 32-year-old female that presents to the ER with redness and itchiness below both breasts. Her physical examination is consistent with fungal infection. Suspicion for mastoiditis is low, patient does not have any redness or warmth to the touch or pain to the breast. She is also afebrile and well- appearing. Patient will be sent home with clotrimazole. She is to follow-up with her primary care doctor within 1-2 days return to ER sooner if symptoms worsen. My medical decision making shared with patient she understands and agrees with plan. Departure Diagnosis: Primary Impression: Fungal infection Condition: Stable Patient Instructions: Fungal Infection, Skin [General] Additional Instructions: Call your primary care doctor TOMORROW for an appointment during the next 1-2 days.See the doctor sooner or return here if your condition worsens before your appointment time. PADMINI OLSEN Aug 19, 2017 16:47
== END 2017-08-19 16:22 | disposition home or self-care (01) ==
LOC: FTE 13:04
DX: B37.9 Candidiasis, unspecified (principal)
CPT/HCPCS: 99283

== ENCOUNTER 2018-06-13 15:45 | Emergency (ER) | END 2018-06-13 20:15 | disposition home or self-care (01) ==

== ENCOUNTER 2019-05-01 10:22 | Emergency (ER) | payer OTHER ==
[~2019-05-01] VITALS: Ht 165.1 cm; Wt 77.0 kg
[~2019-05-01 10:22] MED LIST changes: +ACET325T33 PO; +CLOT30CR24 TOP; +DOCU-144 PO; +FER325 PO; +IBUP-1561 PO; +KEN25O TOP; +LEVO500T48 PO; -LEVO500T72 PO; +VALA10004 PO
[2019-05-01 10:30] VITALS: BP 120/68; PULSE 68; RESP 18; Ht 165.1 cm; Wt 77.0 kg
[2019-05-01] MEDS ORDERED: KETOROLAC 30 MG INJ IM STA (11:16)
[2019-05-01] MEDS ORDERED: METO10TA92 PO (11:50)
[2019-05-01] MEDS ORDERED: ACET325T33 PO (11:50)
[2019-05-01] MEDS ORDERED: ONDA4TAB8 PO (11:50)
--- NOTE | 2019-05-01 11:57 | ERD ---
ER Documentation Chief Complaint Chief Complaint left upper abdominal pain radiating to back x 5 days HPI 33-year-old female presenting to the ED for left lower cramping abdominal pain x1 week. Patient states the pain comes and goes she denies any diarrhea or constipation, fever chills night sweats,n/v. Patient states this is never happened to her before and she cannot recall any traumatic injury or any event that aggravated the symptoms. Patient states the pain is a 2 out of 10 right now but when she gets the pain goes up to a 6. Patient denies any allergies to medication and states that she is only taken Tylenol for the pain which has helped a little. Patient states that she had IVF almost 3 years ago and that she is not currently or bleeding. ROS All systems reviewed and are negative except as per history of present illness. Medications Home Meds Active Scripts Acetaminophen* (Tylenol*) 325 Mg Tablet, 1 TAB PO Q6 PRN for PAIN AND OR ELEVATED TEMP, #20 TAB Prov:MING OWENS PA-C 05/01/19 Metoclopramide* (Reglan*) 10 Mg Tablet, 10 MG PO Q6 PRN for NAUSEA AND/OR VOMITING, #10 TAB Prov:MING OWENS PA-C 05/01/19 Ondansetron Hcl* (Zofran*) 4 Mg Tablet, 4 MG PO Q6H for NAUSEA AND/OR VOMITING, #30 TAB Prov:MING OWENS PA-C 05/01/19 Triamcinolone Acetonide* (Kenalog*) 0.025%-15GM Oint, 1 APPLIC TOP BID for 5 Days, #1 EA Prov:ÁNGEL PINTO PA-C 06/13/18 valACYclovir HCl (Valtrex) 1,000 Mg Tablet, 1000 MG PO TID for 7 Days, TAB Prov:ÁNGEL PINTO PA-C 06/13/18 Ibuprofen* (Motrin*) 400 Mg Tab, 400 MG PO Q6H PRN for PAIN AND OR ELEVATED TEMP, #30 TAB Prov:ÁNGEL PINTO PA-C 06/13/18 Acetaminophen* (Tylenol*) 325 Mg Tablet, 2 TAB PO Q6 PRN for PAIN AND OR ELEVATED TEMP, #30 TAB Prov:ÁNGEL PINTO PA-C 06/13/18 Docusate Sodium* (Colace*) 100 Mg Capsule, 100 MG PO TID, #90 CAP Prov:ÁNGEL PINTO PA-C 06/13/18 Ferrous Sulfate* (Ferrous Sulfate*) 325 Mg Tabec, 325 MG PO TID, #90 TAB Prov:ÁNGEL PINTO PA-C 06/13/18 Clotrimazole* (Clotrimazole* AF) 1% - 30 Gm Cream.gm., 1 APPLIC TOP BID for 7 Days, TUB Prov:PADMINI OLSEN 08/19/17 Amoxicillin/Potassium Clav (Amox-Clav 500-125 mg Tablet) 500-125 mg Tab, 1 TAB PO Q8 for 10 Days, #30 TAB Prov:ARLENE CHEN 06/26/17 Levofloxacin* (Levaquin*) 500 Mg Tablet, 500 MG PO DAILY for 10 Days, #10 TAB Prov:ARLENE CHEN 06/26/17 Acetaminophen* (Tylophen*) 500 Mg Capsule, 1 CAP PO Q6H PRN for PAIN AND OR ELEVATED TEMP, #20 CAP Prov:VEE GUSTAFSON 06/18/17 Reported Medications Docusate Sodium* (Docusate Sodium*) 100 Mg Capsule, 100 MG PO BID, #60 CAP 06/21/17 Ferrous Sulfate (Ferrous Sulfate) 325 Mg Tablet.dr, 325 MG PO BID 06/05/17 Allergies Allergies: Coded Allergies: No Known Allergy (Unverified , 06/21/17) PMhx/Soc History of Surgery: Yes (C- SECTION 2 WEEKS AGO) Anesthesia Reaction: No Hx Neurological Disorder: No Hx Respiratory Disorders: No Hx Cardiac Disorders: No Hx Psychiatric Problems: No Hx Miscellaneous Medical Probl: Yes Hx Alcohol Use: No Hx Substance Use: No Hx Tobacco Use: No Smoking Status: Never smoker FmHx Family History: No diabetes, No coronary disease, No other Physical Exam Vitals Vital Signs Date Temp Pulse Resp B/P (MAP) Pulse Ox O2 O2 Flow FiO2 Time Delivery Rate 05/01/19 98.0 68 18 120/68 100 10:30 (85) Physical Exam Const: No acute distress Head: Atraumatic Eyes: Normal Conjunctiva ENT: Normal External Ears, Nose and Mouth. Neck: Full range of motion. No meningismus. Resp: Clear to auscultation bilaterally Cardio: Regular rate and rhythm, no murmurs Abd: Soft, non tender, non distended. Normal bowel sounds Skin: No petechiae or rashes Back: No midline or flank tenderness Ext: No cyanosis, or edema Results 24 hrs Laboratory Tests Test 05/01/19 11:27 05/01/19 11:33 Urine Color YELLOW Urine Clarity CLEAR Urine pH 6.0 Urine Specific [place] 1.014 Urine Ketones NEGATIVE mg/dL Urine Nitrite NEGATIVE mg/dL Urine Bilirubin NEGATIVE mg/dL Urine Urobilinogen NEGATIVE mg/dL Urine Leukocyte Esterase NEGATIVE Pk/ul Urine Hemoglobin NEGATIVE mg/dL Urine Glucose NEGATIVE mg/dL Urine Total Protein NEGATIVE mg/dl POC Beta HCG, Qualitative NEGATIVE Current Medications Medications Dose Sig/Alejandro Start Time Status Last (Trade) Ordered Route PRN Stop Time Admin Dose Reason Admin Ketorolac 30 mg ONCE STAT 05/01/19 DC 05/01/19 Tromethamine IM 11:16 05/01/19 11:47 (Toradol) 11:19 Procedures/MDM Medications given in ER: Toradol Patient tolerated medication well with no adverse reactions. Patient reported improvement in pain. Medical decision making: Patient is 33-year-old female presented to ED for left lower abdominal pain that patient describes as crampy and diffuse and comes and goes. Patient states she is currently not having the pain right now and that this episodes have been going on and on for the last 5 days. Patient denies any nausea vomiting diarrhea constipation fever or chills or urinary symptoms. Physical exam was unremarkable patient's abdominal region is soft nontender could not re-provoked the symptoms on palpation. The patient had no CVA tenderness. Patient's UA was unremarkable and patient was given a Toradol injection for pain. On reevaluation the patient states the pain has improved. At this time I have low suspicion for acute coronary syndrome, AAA, mesenteric ischemia, lower lobe pneumonia, DKA, bowel perforation, cholecystitis, choledocholithiasis, ascending cholangitis, hepatic abscess, pancreatitis, PUD, gastritis, GERD, splenic rupture, diverticulitis, UTI, pyelonephritis, nephrolithiasis, appendicitis, constipation, , ectopic , PID, ovarian torsion or tubo-ovarian abscess. I advised the patient that she needs to follow-up with her primary care provider in 1 to 2 days regarding this visit for further evaluation. Advised the patient symptoms worsen return to ER immediately. Patient is in agreement treatment plan had no further questions upon discharge Prescription for home: Zofran acetaminophen Reglan I have discussed with the patient proper use and common side effects to expert with the medication . I advised the patient/family to speak with the pharmacist dispensing the medication to be advised of any potential drug interactions with other medication or supplements they may be taking. Discharge: At this time, patient is stable for discharge and outpatient management. I have instructed the patient to follow-up with his\her primary care physician in 1 to 2 days. I have discussed with the patient the possibility of needing to see a specialist for further work-up and imaging studies if symptoms persist. I have instructed the patient to promptly return to the ER for any new or worsening sym ptoms including increased pain, fever, nausea, vomiting, weakness or LOC. The patient and\or family expressed understanding of and agreement with this plan. All questions were answered. Home care instructions were provided. Disclaimer: Inadvertent spelling and grammatical errors are likely due to EHR\dictation software use and do not reflect on the overall quality of patient care. Also, please note that the electronic time recorded on the note does not necessarily reflect the actual time of the patient encounter. Departure Diagnosis: Primary Impression: Abdominal cramps Condition: Stable Patient Instructions: Abdominal Pain Referrals: [facility] YOU HAVE RECEIVED A MEDICAL SCREENING EXAM AND THE RESULTS INDICATE THAT YOU DO NOT HAVE A CONDITION THAT REQUIRES URGENT TREATMENT IN THE EMERGENCY DEPARTMENT. FURTHER EVALUATION AND TREATMENT OF YOUR CONDITION CAN WAIT UNTIL YOU ARE SEEN IN YOUR DOCTORS OFFICE WITHIN THE NEXT 1-2 DAYS. IT IS YOUR RESPONSIBILITY TO MAKE AN APPOINTMENT FOR FOLOW-UP CARE. IF YOU HAVE A PRIMARY DOCTOR --you should call your primary doctor and schedule an appointment IF YOU DO NOT HAVE A PRIMARY DOCTOR YOU CAN CALL OUR PHYSICIAN REFERRAL HOTLINE AT IF YOU CAN NOT AFFORD TO SEE A PHYSICIAN YOU CAN CHOSE FROM THE FOLLOWING [facility] CLINICS [facility] [address] [place] [facility] [address] [facility]. [facility] [address] [facility] [address] [facility] [address] [facility]. [facility] [address] [facility]. [facility] YOU HAVE RECEIVED A MEDICAL SCREENING EXAM AND THE RESULTS INDICATE THAT YOU DO NOT HAVE A CONDITION THAT REQUIRES URGENT TREATMENT IN THE EMERGENCY DEPARTMENT. FURTHER EVALUATION AND TREATMENT OF YOUR CONDITION CAN WAIT UNTIL YOU ARE SEEN I N YOUR DOCTORS OFFICE WITHIN THE NEXT 1-2 DAYS. IT IS YOUR RESPONSIBILITY TO MAKE AN APPOINTMENT FOR FOLOW-UP CARE. IF YOU HAVE A PRIMARY DOCTOR --you should call your primary doctor and schedule and appointment IF YOU DO NOT HAVE A PRIMARY DOCTOR YOU CAN CALL OUR PHYSICIAN REFERRAL HOTLINE AT . IF YOU CAN NOT AFFORD TO SEE A PHYSICIAN YOU CAN CHOSE FROM THE FOLLOWING [facility] INSTITUTIONS: [facility] [address] [place] [address] [facility] [address] [place] [address] [facility] + [facility] [address] [place] [address] Additional Instructions: Call your primary care doctor TOMORROW for an appointment during the next 1-2 days.See the doctor sooner or return here if your condition worsens before your appointment time. MING OWENS PA-C May 01, 2019 11:57
== END 2019-05-01 12:04 | disposition home or self-care (01) ==
LOC: FTE 10:22
DX: R10.12 Left upper quadrant pain (principal)
CPT/HCPCS: 81003; 81025; 96372; J1885; Z7502